=== PATIENT | female | born 1945 | race Caucasian/White ===

== ENCOUNTER 2019-03-16 06:48 | Inpatient (IN) | payer OTHER ==
[2019-03-16] MEDS ORDERED: EPINEPHrine 1 MG/10 ML SYR IV ONE (06:49)
[2019-03-16] MEDS ORDERED: SODIUM CHL 0.9% 1000 ML BAG IV ONE (06:49)
[2019-03-16] MEDS ORDERED: ATROPINE SULF 1 MG/10 ML SYR IV ONE (06:49)
--- OUTSIDE RECORDS SUMMARY | 2019-03-16 06:50 | XMS REPORT | Clinical Summary ---
:1945 Author Organization [facility] Address [address] [place] [address] Care Team Providers Name Role Phone Asked, None Given Primary Care Provider Unavailable Allergies Active Allergy Reactions Severity Noted Date Comments Clonidine 11/15/2015 Penicillins 11/15/2015 Medications Medication Sig Dispensed Refills Start Date End Date Status benazepril (LOTENSIN) Take 1 tablet(s) 0 Active 40 MG tablet every day by oral route. carvedilol (COREG) carvedilol 3.125 mg 0 Active 3.125 MG tablet tablet aspirin (ASPIR-81) 81 Aspir-81 0 Active MG enteric coated tablet calcium carbonate Calcio Merrick 500 0 Active oyster shell (OS-KAREN) mg tablet 500 mg calcium (1,250 mg) tablet BIOTIN (APPEAREX biotin 0 Active ORAL) ergocalciferol Vitamin D2 50,000 0 Active (ERGOCALCIFEROL) unit capsule 50,000 unit capsule omega-3 fatty Fish Oil 0 Active acids-vitamin E (FISH OIL) 1,000 mg capsule vitamin [id number] Take 1 tablet(s) 0 Active acid 0.5-1 mg tablet every day by oral route. folic acid 20 mg folic acid 20 mg 0 Active capsule capsule multivitamin multivitamin tablet 0 Active (THERAGRAN) tablet pravastatin Take 1 tablet(s) 0 Active (PRAVACHOL) 40 MG every day by oral tablet route. ranitidine (ZANTAC) Take 1 tablet(s) 0 Active 150 MG tablet twice a day by oral route. turmeric, bulk, 100 % turmeric (bulk) 0 Active powder Active Problems Problem Noted Date Basal cell carcinoma of skin 08/02/2013 Breast lump 08/02/2013 Family history of malignant neoplasm of breast 02/02/2013 Dysuria 07/29/2012 Malignant neoplasm of breast 05/03/2012 Cancer Staging: Clinical: Stage IIA (T2, N0, M0) - Signed by Willie Benavides MD on 02/25/2016 Encounters Date Type Specialty Care Team Description 10/22/2018 Hospital Encounter Radiology Kerry Peguero MD Malignant neoplasm of upper-outer quadrant of right female breast, unspecified estrogen receptor status (HCC); Abnormal mammogram 10/22/2018 Hospital Encounter Radiology Kerry Peguero MD Malignant neoplasm of upper-outer quadrant of right female breast, unspecified estrogen receptor status (HCC); Abnormal mammogram 07/15/2018 Transcribe Orders Access Kerry Peguero MD Malignant neoplasm of upper-outer quadrant of right female breast, unspecified estrogen receptor status (HCC) (Primary Dx); Abnormal mammogram after 03/15/2018 Family History Medical History Relation Name Comments Cancer Other NIECE GASTRIC CANCER Cancer Other "FDR" BREAST CANCER Cancer Other "FDR" BREAST CANCER Cancer Sister PANCREATIC CANCER Relation Name Status Comments Other NIECE Other "FDR" Other "FDR" Alive Sister Social History Tobacco Use Types Packs/Day Years Used Date Former Smoker Alcohol Use Drinks/Week oz/Week Comments No Sex Assigned at Date Recorded Not on file Job Start Date Occupation Industry Not on file Not on file Not on file Travel History Travel Start Travel End No recent travel history available. Last Filed Vital Signs Not on file Plan of Treatment Health Maintenance Due Date Last Done Comments COLONOSCOPY SCREENING 1994 SHINGLES VACCINES (#1) 1994 65+ PNEUMOCOCCAL VACCINE (1 of 2 - 2009 PCV13) INFLUENZA VACCINE 02/10/2019 BREAST CANCER SCREENING 10/22/2020 10/22/2018, 10/22/2018, 10/22/2018, Additional history exists Procedures Procedure Name Priority Date/Time Associated Comments Diagnosis US BREAST COMPLETE Routine 10/22/2018 12:12 Malignant neoplasm Results for this BILATERAL PM CDT of upper-outer procedure are in quadrant of right the results female breast, section. unspecified estrogen receptor status (HCC) Abnormal mammogram MAMMO BREAST Routine 10/22/2018 11:45 Malignant neoplasm Results for this DIAGNOSTIC AM CDT of upper-outer procedure are in TOMOSYNTHESIS quadrant of right the results BILATERAL female breast, section. unspecified estrogen receptor status (HCC) Abnormal mammogram after 03/15/2018 Results US Breast Complete Bilateral (10/22/2018 12:12 PM CDT) Specimen Narrative Performed At PROCEDURE: [facility] BREAST DIAGNOSTIC TOMOSYNTHESIS BILATERAL, US BREAST COMPLETE BILATERAL 10/22/2018 11:25 AM COMPARISON: Mammograms dated 09/2014 through 09/2017. Bilateral breast ultrasound dated 10/08/2017. TECHNIQUE: Digital bilateral diagnostic mammography with tomosynthesis was performed and interpreted using computer-assisted detection. Hand-held high resolution sonographic images of the bilateral breast(s) including all 4 quadrants and the retroareolar regions were obtained with color Doppler imaging as needed. CLINICAL HISTORY: 73-year-old asymptomatic female with history of right breast cancer status post breast conserving therapy in 2010. FINDINGS: MAMMOGRAM: There are scattered fibroglandular densities.There are no new suspicious masses, calcifications or distortions. A stable chronic seroma/hematoma with associated biopsy marker clip is seen in the posterior upper outer right breast 11 o'clock position 6 cm from the nipple corresponding to the site of segmental mastectomy. There is mild global right skin and trabecular thickening consistent with history of radiation therapy. There is no mammographic evidence of recurrence. ULTRASOUND: There are no new suspicious cystic or solid masses in either breast. A persistent 3 cm seroma/hematoma is again seen in the upper outer right breast corresponding to the site of segmental mastectomy, unchanged compared to prior ultrasound performed September 2017. There is no sonographic evidence of recurrence. IMPRESSION: 1. Benign postsurgical/posttreatment changes of the right breast without specific mammographic or sonographic features of new or recurrent malignancy. 2. No specific mammographic features of left breast malignancy. BI-RADS Category 2. Benign. RECOMMENDATION: Comparison with physical exam and annual screening mammography. Findings and recommendations were discussed with the patient at the time of the examination. This facility is accredited by [employer] for Mammography. A negative x-ray report should not delay biopsy if a dominant or clinically suspicious mass is present. Not all cancers are identified by x-ray. [id number] Performing Organization Address City/State/Zipcode Phone Number [facility] [address] [place] [address] Mammo Breast Diagnostic Tomosynthesis Bilateral (10/22/2018 11:45 AM CDT) Specimen Narrative Performed At PROCEDURE: [facility] BREAST DIAGNOSTIC TOMOSYNTHESIS BILATERAL, US BREAST COMPLETE BILATERAL 10/22/2018 11:25 AM COMPARISON: Mammograms dated 09/2014 through 09/2017. Bilateral breast ultrasound dated 10/08/2017. TECHNIQUE: Digital bilateral diagnostic mammography with tomosynthesis was performed and interpreted using computer-assisted detection. Hand-held high resolution sonographic images of the bilateral breast(s) including all 4 quadrants and the retroareolar regions were obtained with color Doppler imaging as needed. CLINICAL HISTORY: 73-year-old asymptomatic female with history of right breast cancer status post breast conserving therapy in 2010. FINDINGS: MAMMOGRAM: There are scattered fibroglandular densities.There are no new suspicious masses, calcifications or distortions. A stable chronic seroma/hematoma with associated biopsy marker clip is seen in the posterior upper outer right breast 11 o'clock position 6 cm from the nipple corresponding to the site of segmental mastectomy. There is mild global right skin and trabecular thickening consistent with history of radiation therapy. There is no mammographic evidence of recurrence. ULTRASOUND: There are no new suspicious cystic or solid masses in either breast. A persistent 3 cm seroma/hematoma is again seen in the upper outer right breast corresponding to the site of segmental mastectomy, unchanged compared to prior ultrasound performed September 2017. There is no sonographic evidence of recurrence. IMPRESSION: 1. Benign postsurgical/posttreatment changes of the right breast without specific mammographic or sonographic features of new or recurrent malignancy. 2. No specific mammographic features of left breast malignancy. BI-RADS Category 2. Benign. RECOMMENDATION: Comparison with physical exam and annual screening mammography. Findings and recommendations were discussed with the patient at the time of the examination. This facility is accredited by [employer] for Mammography. A negative x-ray report should not delay biopsy if a dominant or clinically suspicious mass is present. Not all cancers are identified by x-ray. [id number] Performing Organization Address City/State/Zipcode Phone Number [facility] [address] [place] [address] after 03/15/2018 Insurance Payer Benefit Plan / Subscriber ID Effective Dates Phone Address Type Group KAREEM SERNA xxxxxxxxx 1981-Present MEDICARE MEDICARE PART A xxxxxxxxxxx 2009-Present [place], [place] Medicare AND B
[2019-03-16] MEDS ORDERED: Ringers Lactate 1,000 ML IV ONE (07:16)
[2019-03-16] MEDS ORDERED: GLYCOPYRROLATE 0.2 MG/ML SYR ONE ×2 (07:21→08:40)
[2019-03-16] MEDS ORDERED: Phenylephrine HCl 10 MG/ML 1 ML VIAL ONE ×2 (07:22→08:42)
[2019-03-16] MEDS ORDERED: LIDOCAINE 1% MPF 30 ML VIAL ONE (08:00)
[2019-03-16] MEDS ORDERED: LIDOCAINE VISCOUS 2% SOLN 15 ML UDC ONE (08:00)
[2019-03-16] MEDS ORDERED: PROPOFOL 200 MG/20 ML VIAL IV ONE (08:07)
[2019-03-16] MEDS ORDERED: MIDAZOLAM HCL 2 MG/2 ML INJ ONE (08:07)
[2019-03-16] MEDS ORDERED: LIDOCAINE 1% MPF 5 ML VIAL ONE (08:07)
[2019-03-16] MEDS ORDERED: EPINEPHRINE/PF 1 MG/ML AMP ONE (08:41)
[2019-03-16] MEDS ORDERED: PROPOFOL 1,000 MG/100 ML VIAL IV PRN (08:53)
[2019-03-16] MEDS ORDERED: NA CHLORIDE 0.9% 1,000 ML IV SCH (09:00)
[2019-03-16] MEDS ORDERED: NOREPINEPHRINE 4 MG in D5W 250 ML IV ONE (09:15)
[2019-03-16] MEDS ORDERED: PROMETHAZINE 25 MG/ML VIAL ONE (09:52)
[2019-03-16] MEDS ORDERED: NA CHLORIDE 0.9% 500 ML ONE (09:52)
[2019-03-16 10:32] LABS: Absolute Lymphocytes (CBC) 0.5 K/uL (0.7-4.9); Basophils % 0.4 % (0-1.3); Hematocrit 25.2 % (36.0-45.0); Lymphocytes % 2.5 % (15.3-44.8); MPV 6.1 fL (7.6-11.3); RBC Red Blood Cell Count 3.13 M/uL (3.86-4.86)
--- NOTE | 2019-03-16 10:35 | RAD REPORT ---
EXAM DESCRIPTION: RAD - FLUORO-GUIDE FOR BRONCH UPT1HR - 03/16/2019 9:32 am FINDINGS: There were 3 portable C-arm views submitted from fluoroscopic assisted right upper lobe br onchoscopy. No suspicious or unexpected finding. Fluoro time was 1 minutes 9 seconds.
[2019-03-16] MEDS ORDERED: LORazepam 2 MG/ML VIAL IV PRN (10:44)
--- NOTE | 2019-03-16 10:46 | RAD REPORT ---
EXAM DESCRIPTION: RAD - Chest Single View - 03/16/2019 10:36 am CLINICAL HISTORY: Post bronchoscopy chest film COMPARISON: CT chest March 04, chest March 03, fluoroscopic images from bronchoscopy March 16 TECHNIQUE: AP portable chest image was obtained 1030 hours . FINDINGS: Endotracheal tube is in place with the tip at the T4 level. Trachea is midline. NG tube is in place extending into the antrum or possibly duodenal bulb. There is a very large right-sided pneumothorax with complete atelectasis of the right upper, right mi ddle and right lower lobes. Along the lower left chest and upper abdomen there is air in the subcutan eous fatty tissues. Air along the right side of the heart border is believed to be related to the pne umothorax rather than pneumomediastinum. Left lung field remains fully aerated. No acute left-sided finding. No left-sided pneumothorax or ple ural fluid collection. Heart size is normal. No acute bony abnormality seen. No acute aortic findings suspected. Findings discussed with the referring physician 10:40 a.m. IMPRESSION: Very large right-sided pneumothorax with complete atelectasis of all right-side lobes. Trachea remains in the midline. Trach tube is in place with tip at the T4 level. Subcutaneous emphysema is present along the lower lateral right chest and abdomen.
[2019-03-16 10:53] LABS: Albumin 2.3 g/dL (3.4-5.0); Bilirubin Total 0.3 mg/dL (0.2-1.0); Potassium 3.2 mmol/L (3.5-5.1); Protein, Total 5.4 g/dL (6.4-8.2)
[2019-03-16] MEDS ORDERED: SUCCINYLCHOLINE 20 MG/ML (10 ML) IV ONE (10:53)
[2019-03-16] MEDS ORDERED: LIDOCAINE 1% 20 ML MDV ONE (10:53)
[2019-03-16 11:08] LABS: Phosphorus 3.6 mg/dL (2.5-4.9)
[2019-03-16 11:23] LABS: Magnesium 1.3 mg/dL (1.8-2.4)
--- NOTE | 2019-03-16 11:28 | RAD REPORT ---
EXAM DESCRIPTION: RAD - Chest Single View - 03/16/2019 11:19 am CLINICAL HISTORY: Pneumothorax with chest tube insertion COMPARISON: March 16 TECHNIQUE: AP portable chest image was obtained 1116 hours . FINDINGS: Chest tube is been placed via the fifth or sixth intercostal space. Chest tube loops to th e floor of the chest with the tip extending in medial mid chest. There has been substantial re-expans ion of the right lung field. There remains small areas of pneumothorax at the right base and right ap ex. Anterior pneumothorax component cannot be evaluated on portable imaging. Trachea remains midline. Endotracheal tube is in place. NG tube has not changed. No new left lung field finding. Heart size i s stable. IMPRESSION: Right-sided chest tube has been placed as detailed. Substantial re-expansion of the atelectatic right lobes. Small remnant pneumothorax remains in the ri ght apex and right base. Anterior pneumothorax component cannot be assessed.
[2019-03-16] MEDS: FENTANYL CITR 100 MCG/2 ML IV PRN ×3 (11:29→22:09)
[2019-03-16] MEDS: LORazepam 2 MG/ML VIAL IV PRN ×5 (11:29→23:33)
[2019-03-16] MEDS: FAMOTIDINE 20 MG/2 ML VIAL IV SCH ×2 (11:45→20:27)
--- NOTE | 2019-03-16 11:53 | P.HP ---
Certification for Inpatient With expected LOS: >2 Midnights Patient will require the following post-hospital care: None Practitioner: I am a practitioner with admitting privileges, knowledge of patient current condition, hospital course, and medical plan of care. Services: Services provided to patient in accordance with Admission requirements found in Title 42 Section 412.3 of the Code of Federal Regulations Patient History Date of Service: 03/17/19 Reason for admission: Respiratory failure hemoptysis pneumothorax History of Present Illness: Patient is 74 years of age evaluated by me as an outpatient for the possibility of a ruling out tuberculosis she did have a right upper lobe infiltrate. Patient was subsequently admitted after the 3rd biopsy she developed profuse bleeding had to be resuscitated with ACLS protocol patient was subsequently intubated and transferred here to the ICU was found to have a pneumothorax and later chest tube had to be inserted she is doing better more cooperative little agitated Patient was evaluated my office complaining of coughing feeling tired weight loss lack of appetite Allergies Penicillins Allergy (Mild, Verified 03/16/19 11:39) Rash PCN Allergy (Mild, Uncoded 03/16/19 11:39) Rash Home Medications: Calcium Carbonate [Calcium] 1 tab PO DAILY 03/16/19 Carvedilol [Coreg] 25 mg PO BID 03/16/19 Cholecalciferol (Vitamin D3) [Vitamin D3] 5,000 unit PO DAILY 03/16/19 Losartan Potassium [Cozaar] 50 mg PO DAILY 03/16/19 Magnesium Oxide [Magnesium] 250 mg PO DAILY 03/16/19 Meclizine HCl 25 mg PO TID PRN 03/16/19 Multivitamin [Multiple Vitamins] 1 each PO DAILY 03/16/19 Pravastatin Sodium 40 mg PO BEDTIME 03/16/19 Ranitidine HCl [Zantac 75] 75 mg PO BID 03/16/19 Vit B Complx C/Folic Acid/Zinc [Renaplex Tablet] 1 tab PO DAILY 03/16/19 - Past Medical/Surgical History -: Hypertension -: Hyperlipidemia -: Breast cancer treated with lumpectomy chemo radiation -: Tonsillectomy -: Cholecystectomy -: Appendectomy -: Lumpectomy - Social History Smoking Status: Former smoker Review of Systems is unable to be obtained Physical Examination - Vital Signs Temperature: 97.4 F Blood Pressure: 127/71 Pulse: 82 Respirations: 15 Pulse Ox (%): 100 - Physical Exam General: Moderate distress, Other (Patient on a ventilator) HEENT: Atraumatic Neck: Supple Respiratory: Clear to auscultation bilaterally Cardiovascular: No edema, Normal S1 S2 Gastrointestinal: Normal bowel sounds, Soft and benign Musculoskeletal: No clubbing, No swelling - Studies Laboratory Data (last 24 hrs) 03/16/19 10:07: Sodium Cancelled, Potassium Cancelled, BUN Cancelled, Creatinine Cancelled, Glucose Cancelled, Phosphorus 3.6, Magnesium 1.3 L* 03/16/19 10:07: Sodium 143, Potassium 3.2 L, BUN 6 L, Creatinine 0.73, Glucose 133 H, Total Bilirubin 0.3, AST 35, ALT 21, Alkaline Phosphatase 89 03/16/19 10:07: WBC 18.4 H D, Hgb 8.2 L, Hct 25.2 L, Plt Count 405 03/16/19 09:51: WBC Cancelled, Hgb Cancelled, Hct Cancelled, Plt Count Cancelled Assessment and Plan - Problems (Diagnosis) (1) Respiratory failure Current Visit: Yes Status: Acute Plan: Patient is 74 years of age admitted to the ICU after complications of bronchoscopy which include significant bleeding and pneumothorax he is currently on a ventilator stable patient also has a chest tube in place mildly anemic labs reviewed continue to monitor may need blood transfusion will also monitor her hemoglobin cultures have been all sent out chest x-ray shows re- expansion plan to wean off and extubate tomorrow - Advance Directives Does patient have a Living Will: No Does patient have a Durable POA for Healthcare: No
--- NOTE | 2019-03-16 11:54 | P.OP ---
Date of Service: 03/16/19 (Bronchoscopy with transbronchial biopsy and a BAL) Findings and Operative Technique Patient is 74 years of age admitted for bronchoscopy with the possibility of rule out TB she does have a right upper lobe infiltrate After obtaining informed consent from the patient she was premedicated by anesthesia finding extensive mucopurulent secretions throughout the entire respiratory tract no mass visible multiple biopsies were obtained from the right upper lobe however after the 3rd biopsy patient started bleeding profusely was later found to have a pneumothorax on the right side. Chest tube was inserted she had to be intubated suctioned and transfer to the ICU
--- NOTE | 2019-03-16 11:57 | P.OP ---
Date of Service: 03/16/19 (Right-sided chest tube) Findings and Operative Technique Patient is 74 years of age admitted for bronchoscopy with the possibility of rule out TB she does have a right upper lobe infiltrate Patient developed a pneumothorax after a biopsy Emergency chest tube was inserted using the percutaneous technique guidewire. Tube position was confirmed using a chest x-ray with complete reexpansion
[2019-03-16] MEDS ORDERED: PIPER/TAZO/NS 3.375gm 3.375 GM/100 ML BAG IVPB SCH (12:00)
[2019-03-16 12:13] LABS: Blood Morphology Comment NOT SEEN (NOT SEEN); Platelet Estimate ADEQ; Urine White Blood Cell Casts OK
[2019-03-16 13:17] LABS: Hematocrit 26.3 % (36.0-45.0); MPV 6.1 fL (7.6-11.3); RBC Red Blood Cell Count 3.27 M/uL (3.86-4.86)
[2019-03-16 13:36] LABS: Arterial Blood Carboxyhemoglob 1.2 % (0-1.5); Blood Gas Oxyhemoglobin 98.5 % (94-97)
[2019-03-16] MEDS: NA CHLORIDE 0.9% 1,000 ML IV SCH ×2 (14:00→23:31)
[2019-03-16] MEDS ORDERED: Magnesium Sulfate 2gm IVPB 2 G/50 ML BAG IV ONE (14:01)
[2019-03-16] MEDS: Meropenem 500 MG in NA CHLORIDE 0.9% 100 ML IV SCH (16:52)
[2019-03-16] MEDS ORDERED: Meropenem 500 MG VIAL IV SCH (17:00)
[2019-03-16] MEDS: NA CHLORIDE 0.9% 250 ML IV PRN (21:03)
[2019-03-16] MEDS ORDERED: MAGNESIUM SULFATE 1 gm IVPB 1 GM/100 ML BAG IV ONE (22:32)
[2019-03-16] MEDS ORDERED: POTASSIUM 25 MEQ EFFERV TAB FT ONE (22:32)
[2019-03-17] MEDS: Meropenem 500 MG in NA CHLORIDE 0.9% 100 ML IV SCH ×3 (00:58→17:30)
[2019-03-17] MEDS: FENTANYL CITR 100 MCG/2 ML IV PRN (02:37)
[2019-03-17 05:00] LABS: Absolute Lymphocytes (CBC) 0.5 K/uL (0.7-4.9); Basophils % 0.2 % (0-1.3); Lymphocytes % 2.3 % (15.3-44.8); MPV 6.1 fL (7.6-11.3); RBC Red Blood Cell Count 3.68 M/uL (3.86-4.86)
[2019-03-17] MEDS: LORazepam 2 MG/ML VIAL IV PRN (05:09)
[2019-03-17 05:53] LABS: Phosphorus 3.1 mg/dL (2.5-4.9); Potassium 3.1 mmol/L (3.5-5.1)
[2019-03-17 05:56] LABS: Blood Morphology Comment NOT SEEN (NOT SEEN); Platelet Estimate ADEQ
[2019-03-17] MEDS: KCL 20 MEQ/100 mL IVPB 20 MEQ/100 ML BAG IV SCH ×2 (06:10→08:30)
--- NOTE | 2019-03-17 08:14 | P.PN ---
Subjective Date of Service: 03/17/19 Chief Complaint: Respiratory failure hemoptysis pneumothorax Subjective: Improving (Patient is doing much better she is very alert cooperative responsive hemodynamically stable) Review of Systems is unable to be obtained Physical Examination - Vital Signs Temperature: 97.4 F Blood Pressure: 127/71 Pulse: 82 Respirations: 15 Pulse Ox (%): 100 - Physical Exam General: Alert, Cooperative Respiratory: Clear to auscultation bilaterally, Diminished Cardiovascular: No edema, Normal S1 S2 Gastrointestinal: Normal bowel sounds, Soft and benign - Studies Laboratory Data (last 24 hrs) 03/17/19 04:45: Sodium 143, Potassium 3.1 L, BUN 9, Creatinine 0.77, Glucose 110 H, Phosphorus 3.1, Magnesium 2.0 03/17/19 04:45: WBC 19.9 H D, Hgb 9.7 L, Hct 30.0 L, Plt Count 327 03/16/19 21:48: Magnesium 1.7 L 03/16/19 12:55: WBC 13.6 H D, Hgb 8.6 L, Hct 26.3 L, Plt Count 372 03/16/19 10:07: Sodium Cancelled, Potassium Cancelled, BUN Cancelled, Creatinine Cancelled, Glucose Cancelled, Phosphorus 3.6, Magnesium 1.3 L* 03/16/19 10:07: Sodium 143, Potassium 3.2 L, BUN 6 L, Creatinine 0.73, Glucose 133 H, Total Bilirubin 0.3, AST 35, ALT 21, Alkaline Phosphatase 89 03/16/19 10:07: WBC 18.4 H D, Hgb 8.2 L, Hct 25.2 L, Plt Count 405 03/16/19 09:51: WBC Cancelled, Hgb Cancelled, Hct Cancelled, Plt Count Cancelled Microbiology Data (last 24 hrs): 03/16/19 10:20 Sputum Gram Stain - Final Assessment & Plan - Problems (Diagnosis) (1) Respiratory failure Current Visit: Yes Status: Acute Plan: Patient is doing much better there is no air leak transfused 1 unit of packed red blood cells cultures are pending vital signs stable minimal oxygen will await for final radiology report I think she has a small right apical pneumothorax there is no air leak output the chest tube back on suction repeat chest x-ray in 2 hr wean and extubate patient is on broad-spectrum antibiotics significant amount of purulent material noted in the entire respiratory tract particularly on the right side in the right upper lobe according to Dr. Cunha her INDRA is also high patient is hypokalemic electrolyte replacement protocol Qualifiers: Chronicity: acute
--- NOTE | 2019-03-17 08:23 | RAD REPORT ---
[facility] 7[facility]57 am CLINICAL HISTORY: Pneumothorax COMPARISON: March 16, 2019 FINDINGS: Small to moderate right apical pneumothorax. Right upper lobe opacity unchanged. Right yokasta st tube unchanged in position Endotracheal and nasogastric tubes in good position IMPRESSION: Small to moderate right apical pneumothorax
[2019-03-17] MEDS: NA CHLORIDE 0.9% 1,000 ML IV SCH ×2 (10:00→19:44)
--- NOTE | 2019-03-17 10:09 | RAD REPORT ---
EXAM DESCRIPTION: RAD - Chest Single View - 03/16/2019 9:47 pm CLINICAL HISTORY: Pneumonia follow-up. COMPARISON: Chest 03/16/2019 TECHNIQUE: AP Chest. FINDINGS: There is a worsening opacity in the right upper lobe compatible with progression of pneumo claude. There is atelectasis in the central aspect of the right lung. The left lung is clear. The heart is upper normal in size. Thoracic aorta is tortuous with mild atherosclerosis. No pneumothorax or ple ural fluid. Endotracheal tube is in the midtrachea. Feeding tube extends into the mid abdomen. Right basilar ches t tube tip has migrated inferiorly now projecting over the inferior right cardiac silhouette. There is an old fracture of lateral right rib eight. Old fracture lateral left rib seven. IMPRESSION: 1. Worsening right upper lobe pneumonia. 2. Right chest tube tip has migrated inferiorly and now projects over the inferior right cardiac silh ouette. No pneumothorax. Electronically signed by: Socorro Tuttle DO 03/17/2019 12:35 AM CDT Due to temporary technical issues with the PACS/Fluency reporting system, reports are being signed by the in house radiologist as a courtesy to ensure prompt reporting. The interpreting radiologist is f ully responsible for the content of the report.
--- NOTE | 2019-03-17 11:30 | RAD REPORT ---
EXAM DESCRIPTION: RAD - Chest Single View - 03/17/2019 10:31 am CLINICAL HISTORY: Follow for pneumothorax Chest pain. COMPARISON: Chest Single View dated 03/17/2019; Chest Single View dated 03/16/2019; Chest Single View da janes 03/16/2019; Chest Single View dated 03/16/2019; Thorax W/ Con dated 03/04/2019; FLUORO-GUIDE FOR BRONC H UPT1HR dated 03/16/2019 FINDINGS: Portable technique limits examination quality. Right apical pneumothorax appears slightly diminished in size since earlier study. Right-sided chest tube remains in place. The heart is normal in size. Small left pleural effusion is seen. ET tube is a maria elena the marlene. Enteric tube descends in the stomach.
--- NOTE | 2019-03-17 11:41 | EKG ---
Test Date: 2019-03-16 Test Time: 10:03:33 Non Profit Job Titles: [employer]ICOL[employer] MEASUREMENT RESULTS: Intervals: Rate: 89 AR: 170 QRSD: 80 QT: 606 QTc: 737 [place]: P: 88 AR: 170 QRS: 38 T: 120 INTERPRETIVE STATEMENTS: Sinus rhythm with fusion complexes Nonspecific T wave abnormality Prolonged QT Abnormal ECG Compared to ECG 06/03/1993 07:45:00 Fusion complex(es) now present T-wave abnormality now present Prolonged QT interval now present Electronically Signed On 03-17-19 11:39:37 CDT by Jared Foy
[2019-03-17 14:10] LABS: Arterial Blood Carboxyhemoglob 1.5 % (0-1.5); Blood Gas Oxyhemoglobin 93.6 % (94-97); Blood O2 Saturation 95.6 % (92-98.5)
[2019-03-17] MEDS ORDERED: KCL 20 MEQ/100 mL IVPB 20 MEQ/100 ML BAG IV SCH (20:00)
[2019-03-18] MEDS: FENTANYL CITR 100 MCG/2 ML IV PRN ×2 (00:41→10:20)
[2019-03-18] MEDS: Meropenem 500 MG in NA CHLORIDE 0.9% 100 ML IV SCH ×2 (00:41→09:04)
[2019-03-18 05:36] LABS: Absolute Lymphocytes (CBC) 0.5 K/uL (0.7-4.9); Basophils % 0.1 % (0-1.3); Hematocrit 30.5 % (36.0-45.0); MPV 6.1 fL (7.6-11.3); RBC Red Blood Cell Count 3.73 M/uL (3.86-4.86)
[2019-03-18 05:53] LABS: Magnesium 1.8 mg/dL (1.8-2.4); Phosphorus 1.9 mg/dL (2.5-4.9); Potassium 4.1 mmol/L (3.5-5.1)
[2019-03-18] MEDS ORDERED: MAGNESIUM SULFATE 1 gm IVPB 1 GM/100 ML BAG IV ONE (06:00)
[2019-03-18] MEDS ORDERED: POTASSIUM PHOS IN 0.9 % NACL 15 MMOL/250 ML BAG IV ONE (06:00)
[2019-03-18 06:57] LABS: Blood Morphology Comment NOT SEEN (NOT SEEN); Platelet Estimate ADEQ
[2019-03-18] MEDS ORDERED: VANCOMYCIN 1.5 GM in NA CHLORIDE 0.9% 500 ML IVPB ONE (08:00)
[2019-03-18] MEDS ORDERED: HALOPERIDOL LACT 5 MG/ML INJ IV PRN (08:45)
[2019-03-18] MEDS: NA CHLORIDE 0.9% 1,000 ML IV SCH ×2 (09:02→11:00)
--- NOTE | 2019-03-18 10:07 | P.PN ---
Subjective Date of Service: 03/18/19 Chief Complaint: Altered mental status wheezing Patient was extubated yesterday still is a little tachypneic sputum cultures positive for Staph aureus patient is alert cooperative responsive Review of Systems General: Weakness Respiratory: Shortness of Breath Physical Examination - Vital Signs Temperature: 97.2 F Blood Pressure: 136/82 Pulse: 99 Respirations: 29 Pulse Ox (%): 97 - Physical Exam General: Other (Arousable) Neck: Supple Respiratory: Expiratory wheezes Cardiovascular: No edema, Regular rate/rhythm - Studies Laboratory Data (last 24 hrs) 03/18/19 04:59: Sodium 146 H, Potassium 4.1, BUN 17, Creatinine 1.24, Glucose 116 H, Phosphorus 1.9 L, Magnesium 1.8 03/18/19 04:59: WBC 23.3 H* D, Hgb 10.2 L, Hct 30.5 L, Plt Count 381 03/17/19 15:50: Potassium 3.8 Microbiology Data (last 24 hrs): 03/16/19 10:20 Sputum Gram Stain - Final Assessment & Plan - Problems (Diagnosis) (1) Respiratory failure Current Visit: Yes Status: Acute Plan: Patient has improved was extubated yesterday chest x-ray shows complete expansion of her lungs. There is no air leak no tight delaying will lead Dc chest tube suction sputum cultures positive for Staph change to IV levofloxacin there is no evidence of AFB you fungus on her a biopsy doubt that this is granulomatous infection can Dc isolation reduce IV fluid Qualifiers: Chronicity: acute
[2019-03-18] MEDS: ALBUTEROL 2.5 MG/3 ML NEB SOL IH SCH ×3 (10:40→20:00)
[2019-03-18] MEDS: IPRATROPIUM BROM 0.5MG/2.5ML NEB SCH ×3 (10:40→20:00)
[2019-03-18] MEDS: HEPARIN 5000 UNIT/ML 1 ML VIAL SQ SCH ×2 (11:37→20:11)
[2019-03-18] MEDS: Levofloxacin500mg IV 500 MG/100 ML BAG IV SCH (11:38)
--- NOTE | 2019-03-18 12:39 | RAD REPORT ---
EXAM DESCRIPTION: [facility] Single View03/18/2019 12:27 pm CLINICAL HISTORY: Pneumothorax COMPARISON: March 17, 2019 FINDINGS: Right chest tube has been repositioned with its tip in the mid medial right hemithorax. The right pneumothorax has decreased in size and is small. Endotracheal and nasogastric tubes have removed. No other significant change IMPRESSION: Small right pneumothorax diminished in size
--- NOTE | 2019-03-18 17:32 | RAD REPORT ---
EXAM DESCRIPTION: [facility] Single View03/18/2019 5:23 pm CLINICAL HISTORY: Pneumothorax COMPARISON: March 18, 2019 FINDINGS: Very small right pneumothorax without significant change from the prior examination Right chest tube remains in place No significant change since prior exam
[2019-03-18 21:46] LABS: Urine Appearance TURBID; Urine Bilirubin NEGATIVE (NEG); Urine Blood 3+ (NEG); Urine Color YELLOW; Urine Glucose NEGATIVE (NEG); Urine Protein 3+ (NEG); Urine Urobilinogen 0.2 mg/dL (0.2-1.0); Urine pH 6.5 (5.0-7.0)
[2019-03-18 22:07] LABS: Urine Bacteria >50 /HPF (<20); Urine Culture Reflex Order REFLEXED
[2019-03-19] MEDS: IPRATROPIUM BROM 0.5MG/2.5ML NEB SCH ×2 (02:00→08:43)
[2019-03-19] MEDS: ALBUTEROL 2.5 MG/3 ML NEB SOL IH SCH ×2 (02:00→08:43)
[2019-03-19] MEDS: FENTANYL CITR 100 MCG/2 ML IV PRN ×3 (03:32→20:54)
[2019-03-19 05:57] LABS: Magnesium 2.2 mg/dL (1.8-2.4); Phosphorus 2.4 mg/dL (2.5-4.9); Potassium 4.4 mmol/L (3.5-5.1)
[2019-03-19] MEDS: NA CHLORIDE 0.9% 1,000 ML IV SCH (07:00)
--- NOTE | 2019-03-19 08:17 | RAD REPORT ---
EXAM DESCRIPTION: RAD - Chest Single View - 03/19/2019 6:05 am CLINICAL HISTORY: Chest tube, right-sided pneumothorax COMPARISON: March 18 TECHNIQUE: AP portable chest image was obtained 0526 hours . FINDINGS: Right-sided chest tube remains in place unchanged in position. No new or progressive lung parenchymal process seen. Patient has little if any identifiable pneumothorax on this examination. A trace amount of apical pneumothorax may remain. On portable imaging, anterior pneumothorax can be occ ult. No new or progressive left lung field finding. Heart and vasculature are normal. No new or enlarging pleural fluid collection. No acute bony abnormality seen. No acute aortic findings suspected. IMPRESSION: There is little if any identifiable pneumothorax remaining. Anterior pneumothorax can be occult on portable imaging.
[2019-03-19] MEDS: D5W 1,000 ML IV SCH ×2 (09:41→23:10)
[2019-03-19] MEDS: HEPARIN 5000 UNIT/ML 1 ML VIAL SQ SCH (09:41)
[2019-03-19 11:18] LABS: Absolute Lymphocytes (CBC) 0.7 K/uL (0.7-4.9); Basophils % 0.2 % (0-1.3); Hematocrit 30.8 % (36.0-45.0); MPV 6.5 fL (7.6-11.3); RBC Red Blood Cell Count 3.71 M/uL (3.86-4.86)
[2019-03-19] MEDS ORDERED: ALBUTEROL 2.5 MG/3 ML NEB SOL IH PRN (11:35)
--- NOTE | 2019-03-19 11:36 | P.PN ---
Subjective Date of Service: 03/19/19 Chief Complaint: Altered mental status Patient is doing much better she is more alert responsive cooperative responding appropriately Review of Systems is unable to be obtained General: Weakness Physical Examination - Vital Signs Temperature: 97.9 F Blood Pressure: 133/74 Pulse: 96 Respirations: 25 Pulse Ox (%): 98 - Physical Exam General: Alert, In no apparent distress, Cooperative Respiratory: Clear to auscultation bilaterally Cardiovascular: No edema, Regular rate/rhythm Gastrointestinal: Normal bowel sounds - Studies Laboratory Data (last 24 hrs) 03/19/19 10:29: WBC 21.7 H*, Hgb 9.8 L, Hct 30.8 L, Plt Count 343 03/19/19 05:04: Sodium 148 H, Potassium 4.4, BUN 30 H, Creatinine 2.07 H, Glucose 94, Phosphorus 2.4 L, Magnesium 2.2 Microbiology Data (last 24 hrs): 03/16/19 10:20 Sputum Gram Stain - Final 03/16/19 10:20 Sputum Culture & Sensitivity - Final Staph Aureus Assessment & Plan - Problems (Diagnosis) (1) Pneumothorax Current Visit: Yes Status: Acute Plan: Patient's lung is fully expanded there is no air leak chest tube off suction will clamp it today repeat chest x-ray in 2 hr the chest x-ray remains expanded will remove the chest tube tomorrow morning patient has had no further hemoptysis bedside physical therapy also has a Staph aureus infection Dc isolation (2) Hypernatremia Current Visit: Yes Status: Acute Plan: Patient is hypernatremic acute renal insufficiency start on D5 water
[2019-03-19] MEDS: Levofloxacin500mg IV 500 MG/100 ML BAG IV SCH (11:54)
--- NOTE | 2019-03-19 15:30 | RAD REPORT ---
EXAM DESCRIPTION: RAD - Chest Single View - 03/19/2019 2:54 pm CLINICAL HISTORY: Pneumothorax, chest tube, chest tube clamped COMPARISON: March 19 TECHNIQUE: AP portable chest image was obtained 1451 hours . FINDINGS: Lung volumes are low probably due to in expiration technique. Chest tube remains in place. No measurable pneumothorax seen on this study. Overlapping ribs in the right apex could potentially mask an extremely small apical pneumothorax. Anterior pneumothorax can be occult on plain film. Right apex opacification has not changed. Heart and vasculature are normal. No new or enlarging pleural fluid collection. No acute bony abnorma lity seen. No acute aortic findings suspected. IMPRESSION: No measurable pneumothorax. Overlapping ribs at the right apex could potentially mask an extremely small apical pneumothorax. Anterior pneumothorax can be occult on portable imaging.
[2019-03-19] MEDS ORDERED: VANCOMYCIN 1.25 GM in NA CHLORIDE 0.9% 250 ML IVPB SCH (19:00)
[2019-03-20 05:32] LABS: Absolute Lymphocytes (CBC) 0.9 K/uL (0.7-4.9); Basophils % 0.3 % (0-1.3); Hematocrit 29.3 % (36.0-45.0); Lymphocytes % 5.6 % (15.3-44.8); MPV 6.4 fL (7.6-11.3); RBC Red Blood Cell Count 3.63 M/uL (3.86-4.86)
[2019-03-20 06:12] LABS: Phosphorus 1.6 mg/dL (2.5-4.9); Potassium 3.6 mmol/L (3.5-5.1)
[2019-03-20 06:17] LABS: Magnesium 1.3 mg/dL (1.8-2.4)
[2019-03-20] MEDS ORDERED: Magnesium Sulfate 2gm IVPB 2 G/50 ML BAG IV ONE (06:35)
[2019-03-20] MEDS ORDERED: POTASSIUM PHOS IN 0.9 % NACL 15 MMOL/250 ML BAG IV ONE (07:00)
--- NOTE | 2019-03-20 10:31 | RAD REPORT ---
EXAM DESCRIPTION: RAD - Chest Single View - 03/20/2019 5:25 am CLINICAL HISTORY: Patient has a chest tube Chest pain. COMPARISON: Chest Single View dated 03/19/2019; Chest Single View dated 03/19/2019; Chest Single View da janes 03/18/2019; Chest Single View dated 03/18/2019 FINDINGS: Portable technique limits examination quality. A right-sided chest tube is in place. No measurable pneumothorax. Mild pulmonary edema is noted with small pleural effusions, slightly greater on the left. The heart is upper limit of normal to mildly e nlarged in size. IMPRESSION: No measurable pneumothorax.
[2019-03-20] MEDS: ENOXAPARIN 30 MG/0.3 ML SQ SCH (10:46)
--- NOTE | 2019-03-20 10:50 | P.PN ---
Subjective Date of Service: 03/20/19 Chief Complaint: Pneumothorax Patient is doing much better she is more alert responsive cooperative responding appropriately. Chest x-ray does not show any pneumothorax this chest tube was clamped yesterday morning she is much better chest tube removed today renal function is now normal hypernatremia resolved plan to transfer to the floor physical therapy possible discharge in 1 or 2 days Review of Systems Unremarkable Physical Examination - Vital Signs Temperature: 98.1 F Blood Pressure: 114/80 Pulse: 101 Respirations: 24 Pulse Ox (%): 96 - Physical Exam General: Alert, In no apparent distress, Oriented x3 Respiratory: Clear to auscultation bilaterally, Diminished Cardiovascular: No edema - Studies Laboratory Data (last 24 hrs) 03/20/19 05:03: WBC 15.5 H D, Hgb 9.9 L, Hct 29.3 L, Plt Count 355 03/20/19 05:03: Sodium 142, Potassium 3.6, BUN 20 H, Creatinine 0.71 D, Glucose 118 H, Phosphorus 1.6 L, Magnesium 1.3 L* D 03/19/19 10:29: WBC 21.7 H*, Hgb 9.8 L, Hct 30.8 L, Plt Count 343 Assessment & Plan - Problems (Diagnosis) (1) Pneumothorax Current Visit: Yes Status: Acute Plan: Doing much better chest tube removed there was no pneumothorax despite chest tube being clamped for 24 hr discuss with radiology on-call and verified there is no yearly labs are back to normal an easy and replaced white count declining for appetite transfer to the floor physical therapy discharge in 1 or 2 days hemoglobin stable at 9.9 (2) Hypernatremia Current Visit: Yes Status: Acute Plan: Patient is hypernatremic acute renal insufficiency start on D5 water
[2019-03-20] MEDS: Levofloxacin500mg IV 500 MG/100 ML BAG IV SCH (13:08)
[2019-03-20] MEDS ORDERED: MAGNESIUM SULFATE 1 gm IVPB 1 GM/100 ML BAG IV ONE (19:33)
[2019-03-21 07:05] LABS: BUN Blood Urea Nitrogen 14 mg/dL (7-18); Bicarbonate 25 mmol/L (21-32); Glucose Level 104 mg/dL (74-106); Phosphorus 2.6 mg/dL (2.5-4.9); Potassium 3.6 mmol/L (3.5-5.1); Sodium Level 141 mmol/L (136-145)
[2019-03-21 07:46] LABS: Magnesium 1.4 mg/dL (1.8-2.4)
--- NOTE | 2019-03-21 08:27 | RAD REPORT ---
EXAM DESCRIPTION: RAD - Chest Single View - 03/21/2019 6:18 am CLINICAL HISTORY: Patient has a chest tube Chest pain. COMPARISON: Chest Single View dated 03/20/2019; Chest Single View dated 03/19/2019; Chest Single View da janes 03/19/2019; Chest Single View dated 03/18/2019 FINDINGS: Portable technique limits examination quality. The right-sided chest tube has been removed since preceding day's study. Small right pleural effusion is seen. No measurable pneumothorax. Left lung is grossly clear with a small left pleural effusion. The heart is enlarged with a tortuous thoracic aorta. IMPRESSION: No measurable right-sided pneumothorax.
[2019-03-21] MEDS: ENOXAPARIN 30 MG/0.3 ML SQ SCH (08:50)
[2019-03-21] MEDS ORDERED: Magnesium Sulfate 2gm IVPB 2 G/50 ML BAG IV ONE (09:00)
[2019-03-21] MEDS ORDERED: POTASSIUM CL SA 10 MEQ TAB PO ONE (09:00)
[2019-03-21 10:26] LABS: Absolute Lymphocytes (CBC) 0.9 K/uL (0.7-4.9); Basophils % 0.3 % (0-1.3); Hematocrit 32.1 % (36.0-45.0); Lymphocytes % 6.3 % (15.3-44.8); MPV 6.1 fL (7.6-11.3); RBC Red Blood Cell Count 3.97 M/uL (3.86-4.86)
[2019-03-21] MEDS: Levofloxacin500mg IV 500 MG/100 ML BAG IV SCH (10:35)
--- NOTE | 2019-03-21 12:14 | P.PN ---
Subjective Date of Service: 03/21/19 Chief Complaint: AFB SMEAR POSITIVE Patient is doing well no new complaints sputum is AFB smear positive pathology was negative for granulomas Review of Systems General: Weakness Respiratory: Shortness of Breath Physical Examination - Vital Signs Temperature: 97.4 F Blood Pressure: 116/77 Pulse: 98 Respirations: 20 Pulse Ox (%): 93 - Physical Exam General: Alert, Oriented x3 Neck: Supple Respiratory: Clear to auscultation bilaterally Cardiovascular: No edema, Regular rate/rhythm - Studies Laboratory Data (last 24 hrs) 03/21/19 10:17: WBC 14.2 H, Hgb 11.0 L, Hct 32.1 L, Plt Count 368 03/21/19 05:40: Sodium 141, Potassium 3.6, BUN 14, Creatinine 0.47 L, Glucose 104, Phosphorus 2.6 D, Magnesium 1.4 L* 03/20/19 14:28: Magnesium 1.6 L Microbiology Data (last 24 hrs): 03/18/19 20:50 Catheterized Urine [place] Count - Final <10,000 CFU/ML. 03/18/19 20:50 Catheterized Urine - Final No growth. 03/21/19 06:30 Vaginal Wet Prep - Final Assessment & Plan - Problems (Diagnosis) (1) Acid fast bacillus Current Visit: Yes Status: Acute Plan: Patient smear is AFB positive microbiology just call me although pathology did not show any evidence of granulomas or AFB were will transfer her to an isolation unit start on triple therapy patient is already on levofloxacin patient is doing well vital signs are all stable oxygenation satisfactory remove Mccann catheter ambulate patient is still hypomagnesemia white count is declining
[2019-03-21] MEDS: ISONIAZID 300 MG TAB PO SCH (14:38)
[2019-03-21] MEDS ORDERED: MAGNESIUM SULFATE 1 gm IVPB 1 GM/100 ML BAG IV ONE (18:00)
[2019-03-21] MEDS: PYRAZINAMIDE 500 MG TAB PO SCH (21:20)
[2019-03-22 05:32] LABS: Magnesium 1.7 mg/dL (1.8-2.4)
[2019-03-22] MEDS ORDERED: MAGNESIUM SULFATE 1 gm IVPB 1 GM/100 ML BAG IV ONE (07:30)
[2019-03-22] MEDS: PYRAZINAMIDE 500 MG TAB PO SCH ×2 (09:33→20:49)
[2019-03-22] MEDS: ISONIAZID 300 MG TAB PO SCH (09:33)
[2019-03-22] MEDS: ENOXAPARIN 30 MG/0.3 ML SQ SCH (09:33)
[2019-03-22] MEDS: ONDANSETRON 4 MG/2 ML VIAL IV PRN ×2 (09:57→21:44)
--- NOTE | 2019-03-22 12:36 | P.PN ---
Subjective Date of Service: 03/22/19 Chief Complaint: AFB SMEAR POSITIVE Patient has some nausea and vomiting today Review of Systems General: Weakness Respiratory: Shortness of Breath Physical Examination - Vital Signs Temperature: 97 F Blood Pressure: 116/75 Pulse: 95 Respirations: 18 Pulse Ox (%): 95 - Physical Exam General: Alert, Oriented x3 Respiratory: Clear to auscultation bilaterally Cardiovascular: No edema, Regular rate/rhythm - Studies Laboratory Data (last 24 hrs) 03/22/19 05:03: Potassium 4.0, Magnesium 1.7 L 03/21/19 16:07: Magnesium 1.7 L Microbiology Data (last 24 hrs): 03/18/19 20:50 Catheterized Urine [place] Count - Final <10,000 CFU/ML. 03/18/19 20:50 Catheterized Urine - Final No growth. Assessment & Plan - Problems (Diagnosis) (1) Acid fast bacillus Current Visit: Yes Status: Acute Plan: Continue with triple therapy she is nausea vomiting will Dc Levaquin sats are 91 % on room air plan for discharge once patient is ambulating chest x-ray satisfactory continue with triple therapy until cultures are available Discharge Plan: Home Plan to discharge in: 24 Hours
[2019-03-23] MEDS ORDERED: DIGOXIN 0.25 MG/ML AMP ONE ×2 (03:37→04:15)
[2019-03-23] MEDS ORDERED: Magnesium Sulfate 2gm IVPB 2 G/50 ML BAG IV ONE (03:39)
[2019-03-23] MEDS ORDERED: NA CHLORIDE 0.9% 500 ML IV ONE (03:42)
[2019-03-23] MEDS ORDERED: NA CHLORIDE 0.9% 250 ML ONE ×2 (03:47→04:36)
[2019-03-23 06:41] LABS: Absolute Lymphocytes (CBC) 0.9 K/uL (0.7-4.9); Basophils % 0.4 % (0-1.3); Hematocrit 34.7 % (36.0-45.0); Lymphocytes % 5.1 % (15.3-44.8); MPV 6.9 fL (7.6-11.3); RBC Red Blood Cell Count 4.27 M/uL (3.86-4.86)
[2019-03-23 07:56] LABS: Magnesium 2.5 mg/dL (1.8-2.4); Thyroid Stimulating Hormone 2.04 uIU/mL (0.360-3.740)
--- NOTE | 2019-03-23 08:33 | P.PN ---
Subjective Date of Service: 03/23/19 Chief Complaint: AFB SMEAR POSITIVE recent AFib Patient is moaning is doing well she is alert responsive cooperative vital signs have been all stable apparently last night she got up vent to the commode developed a rapid AFib at rate around 100 any T fell little dizzy was cardioverted using digoxin and now back in sinus rhythm is mildly short of breath Review of Systems General: Weakness Respiratory: Shortness of Breath Physical Examination - Vital Signs Temperature: 97.2 F Blood Pressure: 106/62 Pulse: 108 Respirations: 18 Pulse Ox (%): 95 - Physical Exam General: Alert, Oriented x3 Respiratory: Clear to auscultation bilaterally Cardiovascular: No edema, Regular rate/rhythm - Studies Laboratory Data (last 24 hrs) 03/23/19 06:35: Sodium 137, Potassium 4.0, BUN 21 H, Creatinine 0.66, Glucose 78 , Magnesium 2.5 H D 03/23/19 05:59: WBC 17.4 H D, Hgb 11.6 L, Hct 34.7 L, Plt Count 346 Assessment & Plan - Problems (Diagnosis) (1) Acid fast bacillus Current Visit: Yes Status: Acute Plan: C no change in treatment she is not tolerating it there has been no nausea vomiting (2) Atrial fibrillation Current Visit: Yes Status: Acute Plan: Patient had an episode of paroxysmal AFib echocardiogram pending she reverted to sinus rhythm the digoxin will plan to ambulate magnesium is now corrected white count is still mildly elevated Qualifiers: Atrial fibrillation type: paroxysmal Qualified Code(s): I48.0 - Paroxysmal atrial fibrillation
--- NOTE | 2019-03-23 09:16 | RAD REPORT ---
EXAM DESCRIPTION: [place] Single View03/23/2019 9:09 am CLINICAL HISTORY: AFib COMPARISON: March 21 FINDINGS: A curvilinear density is present within the right apex equivocal for a tiny pneumothorax. Small pleural effusions with mild bibasilar atelectasis. IMPRESSION: A curvilinear density is present within the right apex equivocal for a tiny pneumothorax
[2019-03-23] MEDS: ENOXAPARIN 40 MG/0.4 ML SQ SCH (09:52)
[2019-03-23] MEDS: ISONIAZID 300 MG TAB PO SCH (09:52)
[2019-03-23] MEDS: PYRAZINAMIDE 500 MG TAB PO SCH ×2 (09:53→21:54)
[2019-03-23] MEDS: ONDANSETRON 4 MG/2 ML VIAL IV PRN (09:53)
--- NOTE | 2019-03-23 10:24 | P.PN ---
Subjective Date of Service: 03/23/19 PATIENT HAD A RAPID RESPONSE CALLED TO THE ROOM. PATIENT WAS IN ATRIAL FIB RAPID VENTRICULAR RESPONSE. PATIENT'S BLOOD PRESSURE WAS 85/50. PATIENT WAS GIVEN IV DIGOXIN. HOWEVER, PATIENT HAS PERIPHERAL IV LOOKED TO BE INFILTRATED. WE WENT AHEAD AND GOT AN EJ. PATIENT WAS GIVEN DIGOXIN ALONG WITH IV FLUID BOLUS AND MAGNESIUM WAS GIVEN WELL. PATIENT CONVERTED TO A SINUS RHYTHM BY ROUND 5:00 A.M.. CLINICALLY, PATIENT APPEARS TO BE DOING MUCH BETTER. WILL NOTIFY DR. VERA IN A.M.. ALSO WILL GET CARDIOLOGY CONSULTATION. Review of Systems 10-point ROS is otherwise unremarkable Physical Examination - Vital Signs Temperature: 97.2 F Blood Pressure: 106/62 Pulse: 108 Respirations: 18 Pulse Ox (%): 95 - Physical Exam General: Alert, In no apparent distress, Oriented x3 Respiratory: Clear to auscultation bilaterally, Normal air movement Cardiovascular: Irregular heart rate/rhythm Gastrointestinal: Normal bowel sounds, Soft and benign, Non-distended Musculoskeletal: No clubbing - Studies Laboratory Data (last 24 hrs) 03/23/19 06:35: Sodium 137, Potassium 4.0, BUN 21 H, Creatinine 0.66, Glucose 78 , Magnesium 2.5 H D 03/23/19 05:59: WBC 17.4 H D, Hgb 11.6 L, Hct 34.7 L, Plt Count 346 Assessment & Plan - Problems (Diagnosis) (1) Atrial fibrillation with rapid ventricular response Current Visit: Yes Status: Acute - Plan 1. WILL CONTINUE MEDICATIONS FOR RATE CONTROL AND CONSIDER ANTICOAGULATION 2. CONTINUE WITH STRICT BLOOD PRESSURE CONTROL 3. ECHOCARDIOGRAM 4. CARDIOLOGY CONSULTATION 5. REPEAT CHEST X-RAY 6. GI AND DVT PROPHYLAXIS Discharge Plan: Home Plan to discharge in: Greater than 2 days - Advance Directives Does patient have a Living Will: No Does patient have a Durable POA for Healthcare: No - Code Status/Comfort Care Code Status Assessed: Yes Code Status: Full Code Critical Care: No Time Spent Managing PTS Care (In Minutes): 45
--- NOTE | 2019-03-23 15:56 | EKG ---
Test Date: 2019-03-23 Test Time: 04:56:54 Embroiderer Hand: RT MEASUREMENT RESULTS: Intervals: Rate: 114 [place]: 158 QRSD: 76 QT: 342 QTc: 471 [place]: P: 48 [place]: 158 QRS: -40 T: 131 INTERPRETIVE STATEMENTS: Sinus tachycardia Left axis deviation ST & T wave abnormality, consider anterior ischemia Abnormal ECG Compared to ECG 03/23/2019 03:13:52 ST (T wave) deviation now present Atrial fibrillation no longer present T-wave abnormality no longer present Possible ischemia still present Electronically Signed On 03-23-19 15:54:24 CDT by Jared Foy
--- NOTE | 2019-03-23 15:57 | EKG ---
Test Date: 2019-03-23 Test Time: 03:13:52 [employer]: RT MEASUREMENT RESULTS: Intervals: Rate: 176 [place]: QRSD: 74 QT: 278 QTc: 475 [place]: P: [place]: QRS: -30 T: 189 INTERPRETIVE STATEMENTS: Atrial fibrillation with rapid ventricular response Left axis deviation T wave abnormality, consider lateral ischemia or digitalis effect Abnormal ECG Compared to ECG 03/16/2019 10:03:33 Left-axis deviation now present Possible ischemia now present Sinus rhythm no longer present Fusion complex(es) no longer present Prolonged QT interval no longer present T-wave abnormality still present Electronically Signed On 03-23-19 15:54:25 CDT by Jared Foy
[2019-03-23] MEDS ORDERED: MAGNES/ALUMIN/SIMET 30ML UCUP PO ONE (21:25)
[2019-03-23] MEDS ORDERED: FAMOTIDINE 20 MG/2 ML VIAL IV ONE (21:30)
--- NOTE | 2019-03-23 22:19 | CON ---
Date of Consultation: 03/23/2019 Patient admitted initially to the ICU by Dr. Yung on 03/17/2019. I saw the patient today, 2018. Reason For Consultation: Atrial fibrillation. History Of Present Illness: Ms. Wagner is a 74-year-old woman. She has a history of hypertension, dyslipidemia; breast cancer, status post lumpectomy, chemo as well as radiation. She also has a hist ory of tonsillectomy, cholecystectomy, appendectomy. She is a former smoker. She had a workup for t uberculosis including a bronchoscopy and had some bleeding and a pneumothorax. She was resuscitated, intubated, and has actually done very well. She had a chest tube placed. She is now on the floor, but while she was here, she had one episode of rapid atrial fibrillation. By the time I saw her, she was back in sinus rhythm. Past Medical History: As stated above. Allergies: SHE IS ALLERGIC TO PENICILLIN. Review of Systems: Negative. Social History: Positive for history of tobacco. Family History: Noncontributory. Medications: Her present medication right now includes Lovenox, inhalers, isoniazid, pyrazinamide, r ifampin, Zofran as needed. She did receive one dose of digoxin when she went into atrial fibrillatio n at 0.5 mg, but that has been stopped. Physical Examination: General: Today, she was pleasant, in no acute distress. She was in sinus rhythm. Vital Signs: She was afebrile. Her blood pressure was 100/58. Her pulse was 88, respiratory rate w as 18. Her temperature was 97.1. HEENT: Negative. Neck: Supple with no bruit. Chest: Reveals some expiratory wheezing. Cardiac: Revealed a regular rhythm and rate. No murmurs, gallops, or rubs. Abdomen: Benign. Extremities: Revealed no clubbing, cyanosis, or edema. Diagnostic Data: At present, she had an EKG today, showing sinus rhythm. She had an echocardiogram today that was normal. Her last chest x-ray showed what may be a tiny pneumothorax. Her laboratory evaluation showed a white count of 17,400. Her hemoglobin was 11.6. Magnesium was 2.5. Her potassi um was 4.0. Her TSH level is normal at 2.040. Her free T4 level is 1.33. Impression And Plan: Paroxysmal atrial fibrillation, probably secondary to her pulmonary issues, her pneumothorax, her tuberculosis. I am sure she had hypoxia at one point. Nevertheless, she has a no rmal echo. She is in sinus rhythm right now. I certainly would be hesitant to put her on beta-block ers with her pulmonary status. I would prefer we just sit tight. If her atrial fibrillation reoccur s, we will readdress the issue. We can always give IV digoxin and/or IV metoprolol as needed. I cer tainly do not want her to be on any anticoagulants just because of that one episode of atrial fibrill ation. Her other issues including hypertension, dyslipidemia are stable. She is on appropriate pulm onary therapy for her possible tuberculosis. I will be available for questions if the need arises. I will discuss the case further with Dr. Yung. CARLA/RUSS Voice ID: [id number] Report ID: [id number]
[2019-03-24 08:13] LABS: C.trachomatis RNA,TMA Not Detected (Not Detected)
--- NOTE | 2019-03-24 08:20 | RAD REPORT ---
EXAM DESCRIPTION: RAD - Chest Single View - 03/24/2019 6:59 am CLINICAL HISTORY: Recent AFib Chest pain. COMPARISON: Chest Single View dated 03/23/2019; Chest Single View dated 03/21/2019; Chest Single View d ated 03/20/2019; Chest Single View dated 03/19/2019 FINDINGS: Portable technique limits examination quality. Small bilateral pleural effusions are noted. No measurable pneumothorax is seen. The heart is normal in size. No displaced fractures.
[2019-03-24] MEDS: ENOXAPARIN 40 MG/0.4 ML SQ SCH (09:15)
[2019-03-24] MEDS: ISONIAZID 300 MG TAB PO SCH (09:15)
[2019-03-24] MEDS: ONDANSETRON 4 MG/2 ML VIAL IV PRN (09:15)
[2019-03-24] MEDS: PYRAZINAMIDE 500 MG TAB PO SCH ×2 (09:15→20:43)
--- NOTE | 2019-03-24 11:43 | ECHO ---
HEIGHT: 5 ft 2 in WEIGHT: 168 lb 9.6 oz DATE OF STUDY: 03/24/[address]: Jose Turpin MD 2-DIMENSIONAL: YES M.MODE: YES DOPPLER: YES COLOR FLOW: YES TDS: NO PORTABLE: NO DEFINITY: NO BUBBLE STUDY: NO DIAGNOSIS: ATRIAL FIBRILLATION WITH RAPID VENTRICULAR RESPONSE CARDIAC HISTORY: CATHERIZATION: NO SURGERY: NO PROSTHETIC VALVE: NO PACEMAKER: NO MEASUREMENTS (cm) DIASTOLIC (NORMALS) SYSTOLIC (NORMALS) IVSd 1.0 (0.6-1.2) LA Diam (1.9-4.0) LVEF 58% LVIDd 4.0 (3.5-5.7) LVIDs 2.8 (2.0-3.5) %FS 30% LVPWd 1.2 (0.6-1.2) Ao Diam 2.6 (2.0-3.7) 2 DIMENSIONAL ASSESSMENT: RIGHT ATRIUM: NORMAL LEFT ATRIUM: NORMAL RIGHT VENTRICLE: NORMAL LEFT VENTRICLE: NORMAL TRICUSPID VALVE: NORMAL MITRAL VALVE: MITRAL ANNULAR CALCIFICATION PULMONIC VALVE: NORMAL AORTIC VALVE: NORMAL PERICARDIAL EFFUSION: NONE AORTIC ROOT: NORMAL LEFT VENTRICULAR WALL MOTION: NORMAL DOPPLER/COLOR FLOW: NORMAL COMMENTS: NORMAL LEFT VENTRICULAR SIZE AND FUNCTION. NO WALL MOTION ABNORMALITY. NO EFFUSION. MITRAL ANNULAR CALCIFICATION. TECHNOLOGIST: Cookie MARADIAGA
[2019-03-25] MEDS: ENOXAPARIN 40 MG/0.4 ML SQ SCH (09:21)
[2019-03-25] MEDS: PYRAZINAMIDE 500 MG TAB PO SCH ×2 (09:22→20:39)
[2019-03-25] MEDS: ISONIAZID 300 MG TAB PO SCH (09:22)
[2019-03-25] MEDS: ONDANSETRON 4 MG/2 ML VIAL IV PRN (09:23)
--- NOTE | 2019-03-25 09:37 | P.PN ---
Subjective Date of Service: 03/25/19 Chief Complaint: AFB SMEAR POSITIVE recent AFib Patient is doing well on claims to have a poor appetite that there was even before this hospitalization stations diet has been chain AFB smear is pending Review of Systems General: Weakness Physical Examination - Vital Signs Temperature: 97.2 F Blood Pressure: 142/91 Pulse: 86 Respirations: 18 Pulse Ox (%): 96 - Physical Exam General: Alert, In no apparent distress, Oriented x3 Respiratory: Clear to auscultation bilaterally, Diminished Assessment & Plan - Problems (Diagnosis) (1) Acid fast bacillus Current Visit: Yes Status: Acute Plan: Acid-fast bacillus stain is pending wants test negative patient will be discharged to SNF unit will have some Nohemi is chest x-ray has cleared the sputum is no longer red coughing up some brownish sputum chest x-rays also cleared up (2) Atrial fibrillation Current Visit: Yes Status: Resolved Plan: No further episodes of AFib Qualifiers: Atrial fibrillation type: paroxysmal Qualified Code(s): I48.0 - Paroxysmal atrial fibrillation
[2019-03-25 10:34] LABS: Hematocrit 33.6 % (36.0-45.0); MPV 6.5 fL (7.6-11.3); RBC Red Blood Cell Count 4.12 M/uL (3.86-4.86)
[2019-03-25] MEDS: MEGESTROL 40 MG TAB PO SCH ×2 (12:07→20:42)
[2019-03-25] MEDS ORDERED: ALBUTEROL 2.5 MG/3 ML NEB SOL IH PRN (14:00)
[2019-03-26] MEDS ORDERED: RANITIDINE 150 MG TABLET PO SCH (09:00)
[2019-03-26] MEDS ORDERED: FAMOTIDINE 20 MG TAB PO SCH (09:00)
[2019-03-26] MEDS: MEGESTROL 40 MG TAB PO SCH ×2 (09:18→20:33)
[2019-03-26] MEDS: ENOXAPARIN 40 MG/0.4 ML SQ SCH (09:18)
[2019-03-26] MEDS: PYRAZINAMIDE 500 MG TAB PO SCH ×2 (09:18→20:33)
[2019-03-26] MEDS: ISONIAZID 300 MG TAB PO SCH (09:18)
[2019-03-26] MEDS ORDERED: PANTOPRAZOLE 40 MG INJ IVP ONE (10:59)
[2019-03-26] MEDS ORDERED: MAGNES/ALUMIN/SIMET 30ML UCUP PO ONE (11:00)
--- NOTE | 2019-03-26 11:05 | P.PN ---
Subjective Date of Service: 03/26/19 Chief Complaint: Heart burn Patient is doing better complaining of poor appetite severe heartburn already on Pepcid ambulating sputum color is now grade no more hemoptysis Review of Systems Unremarkable Physical Examination - Vital Signs Temperature: 97.9 F Blood Pressure: 171/80 Pulse: 92 Respirations: 17 Pulse Ox (%): 94 - Physical Exam General: Alert, In no apparent distress, Oriented x3 Respiratory: Clear to auscultation bilaterally Cardiovascular: No edema, Normal S1 S2 - Studies Microbiology Data (last 24 hrs): 03/25/19 12:15 Sputum Gram Stain - Final Assessment & Plan - Problems (Diagnosis) (1) Acid fast bacillus Current Visit: Yes Status: Acute Plan: The sputum was not send previously I have ordered 1 and was sent yesterday to the lab once the AFB smear is negative patient to be discharged (2) Gastroesophageal reflux Current Visit: Yes Status: Acute Plan: Patient complaining of severe GERD unresponsive to Pepcid history takes Zantac at home I have given her 1 dose of IV pantoprazole NPO Protonix in addition to Maalox Qualifiers: Esophagitis presence: esophagitis presence not specified Qualified Code(s) : K21.9 - Gastro-esophageal reflux disease without esophagitis (3) Hypertension Current Visit: Yes Status: Acute Plan: Resume home medications oxygenation satisfactory Qualifiers: Hypertension type: essential hypertension Qualified Code(s): I10 - Essential (primary) hypertension
[2019-03-26] MEDS: CARVEDILOL 25 MG TAB PO SCH ×2 (11:25→20:33)
[2019-03-26] MEDS: LOSARTAN POTASSIUM 50 MG TABLET PO SCH (11:26)
[2019-03-27] MEDS: PANTOPRAZOLE 40MG TABLET PO SCH (05:24)
[2019-03-27] MEDS: HOME MED 1 EA UNK (Magnesium Oxide [Magnesium] 250 MG) PO SCH (09:00)
[2019-03-27] MEDS: CARVEDILOL 25 MG TAB PO SCH ×2 (09:48→20:42)
[2019-03-27] MEDS: LOSARTAN POTASSIUM 50 MG TABLET PO SCH (09:48)
[2019-03-27] MEDS: MEGESTROL 40 MG TAB PO SCH ×2 (09:48→20:42)
[2019-03-27] MEDS: ISONIAZID 300 MG TAB PO SCH (09:49)
[2019-03-27] MEDS: PYRAZINAMIDE 500 MG TAB PO SCH ×2 (09:49→20:42)
[2019-03-27] MEDS: ENOXAPARIN 40 MG/0.4 ML SQ SCH (09:49)
[2019-03-28] MEDS: PANTOPRAZOLE 40MG TABLET PO SCH (05:26)
[2019-03-28] MEDS: LOSARTAN POTASSIUM 50 MG TABLET PO SCH (07:43)
[2019-03-28] MEDS: PYRAZINAMIDE 500 MG TAB PO SCH ×2 (07:43→21:21)
[2019-03-28] MEDS: ISONIAZID 300 MG TAB PO SCH (07:43)
[2019-03-28] MEDS: ENOXAPARIN 40 MG/0.4 ML SQ SCH (07:43)
[2019-03-28] MEDS: MEGESTROL 40 MG TAB PO SCH ×2 (07:43→21:21)
[2019-03-28] MEDS: CARVEDILOL 25 MG TAB PO SCH (07:44)
[2019-03-28] MEDS: HOME MED 1 EA UNK (Magnesium Oxide [Magnesium] 250 MG) PO SCH (07:44)
--- NOTE | 2019-03-28 12:44 | P.PN ---
Subjective Date of Service: 03/28/19 Chief Complaint: Heart burn Patient has improved significantly she has been up ambulating no further nausea or AFib heartburn controlled still has poor appetite Review of Systems Unremarkable Physical Examination - Vital Signs Temperature: 97.8 F Blood Pressure: 104/58 Pulse: 77 Respirations: 18 Pulse Ox (%): 95 - Physical Exam General: Alert, In no apparent distress, Oriented x3 Respiratory: Clear to auscultation bilaterally Cardiovascular: No edema, Normal S1 S2 - Studies Microbiology Data (last 24 hrs): 03/25/19 12:15 Sputum Gram Stain - Final 03/25/19 12:15 Sputum Culture & Sensitivity - Final Pseudomonas Aeruginosa Assessment & Plan - Problems (Diagnosis) (1) Acid fast bacillus Current Visit: Yes Status: Acute Plan: Patient is doing much better awaiting final confirmation regarding an AFB sputum smear this negative patient will be discharged (2) Gastroesophageal reflux Current Visit: Yes Status: Acute Plan: Much improved Qualifiers: Esophagitis presence: esophagitis presence not specified Qualified Code(s) : K21.9 - Gastro-esophageal reflux disease without esophagitis (3) Hypertension Current Visit: Yes Status: Acute Plan: Resume home medications oxygenation satisfactory Qualifiers: Hypertension type: essential hypertension Qualified Code(s): I10 - Essential (primary) hypertension
[2019-03-29] MEDS: PANTOPRAZOLE 40MG TABLET PO SCH (05:59)
[2019-03-29] MEDS: NA CHLORIDE 0.9% 250 ML IV PRN (06:17)
[2019-03-29] MEDS: HOME MED 1 EA UNK (Magnesium Oxide [Magnesium] 250 MG) PO SCH (09:00)
[2019-03-29] MEDS ORDERED: CEFEPIME 1 GM/VIAL IV SCH (09:00)
[2019-03-29] MEDS: NA CHLORIDE 0.9% 1,000 ML IV SCH ×3 (09:49→19:00)
[2019-03-29] MEDS: MEGESTROL 40 MG TAB PO SCH ×2 (09:50→21:13)
[2019-03-29] MEDS: ENOXAPARIN 40 MG/0.4 ML SQ SCH (09:50)
[2019-03-29] MEDS: PYRAZINAMIDE 500 MG TAB PO SCH ×2 (09:51→21:13)
[2019-03-29] MEDS: ISONIAZID 300 MG TAB PO SCH (09:52)
--- NOTE | 2019-03-29 11:42 | P.PN ---
Subjective Date of Service: 03/29/19 Chief Complaint: Hypotensive weak Patient complains of weakness otherwise she is very alert responsive not short of breath. No productive cough I stopped all her blood pressure pills no fever or chills Review of Systems General: Weakness Physical Examination - Vital Signs Temperature: 97.1 F Blood Pressure: 77/48 Pulse: 85 Respirations: 17 Pulse Ox (%): 94 - Physical Exam General: Alert, In no apparent distress, Oriented x3 Respiratory: Clear to auscultation bilaterally Cardiovascular: No edema, Regular rate/rhythm, Normal S1 S2 Assessment & Plan - Problems (Diagnosis) (1) Acid fast bacillus Current Visit: Yes Status: Acute Plan: AFB results are pending will contact lab again (2) Gastroesophageal reflux Current Visit: Yes Status: Acute Plan: Much improved Qualifiers: Esophagitis presence: esophagitis presence not specified Qualified Code(s) : K21.9 - Gastro-esophageal reflux disease without esophagitis (3) Hypotension Current Visit: Yes Status: Acute Plan: Patient has developed hypotension will Dc all her home blood pressure pills IV fluids in IV fluid bolus also not growing Pseudomonas in the sputum add cefepime labs ordered Qualifiers: Hypotension type: hypotension due to drug Qualified Code(s): I95.2 - Hypotension due to drugs
[2019-03-29 12:13] LABS: Hematocrit 30.5 % (36.0-45.0); MPV 6.7 fL (7.6-11.3); RBC Red Blood Cell Count 3.82 M/uL (3.86-4.86)
[2019-03-29 12:36] LABS: Potassium 3.7 mmol/L (3.5-5.1)
[2019-03-29] MEDS: CEFEPIME/SWI 1gm 10 ML IV SCH ×2 (13:13→21:13)
[2019-03-29] MEDS: ONDANSETRON 4 MG/2 ML VIAL IV PRN (15:48)
[2019-03-29] MEDS ORDERED: HYDROCORTISONE SUC 100 MG INJ IV ONE (20:22)
[2019-03-29] MEDS ORDERED: MIDODRINE HCL 5 MG TABLET PO ONE (20:29)
[2019-03-29] MEDS ORDERED: NA CHLORIDE 0.9% 500 ML IV ONE (20:37)
[2019-03-29] MEDS ORDERED: NA CHLORIDE 0.9% 500 ML IV SCH (21:00)
[2019-03-30] MEDS ORDERED: NOREPINEPHRINE 4mg/D5W 250mL 0 MG/0 ML BAG IV ONE (01:26)
[2019-03-30] MEDS ORDERED: VANCOMYCIN 1 GM/VIAL ONE ×2 (01:31→03:24)
[2019-03-30] MEDS ORDERED: NA CHLORIDE 0.9% 500 ML ONE (01:31)
[2019-03-30] MEDS ORDERED: HYDROCORTISONE SUC 100 MG INJ ONE (01:31)
[2019-03-30] MEDS: NOREPINEPHRINE 4 MG in D5W 250 ML IV PRN ×2 (01:35→05:18)
[2019-03-30] MEDS ORDERED: HYDROCORTISONE SUC 100 MG INJ IV ONE ×2 (02:05→13:45)
[2019-03-30 02:43] LABS: Absolute Lymphocytes (CBC) 0.7 K/uL (0.7-4.9); Basophils % 0.1 % (0-1.3); Hematocrit 32.3 % (36.0-45.0); RBC Red Blood Cell Count 4.01 M/uL (3.86-4.86)
[2019-03-30] MEDS: NA CHLORIDE 0.9% 1,000 ML IV SCH ×2 (02:47→15:00)
[2019-03-30 02:59] LABS: Albumin 1.8 g/dL (3.4-5.0); Bilirubin Direct 2.5 mg/dL (0-0.2); Bilirubin Total 3.3 mg/dL (0.2-1.0); Potassium 4.2 mmol/L (3.5-5.1); Protein, Total 3.9 g/dL (6.4-8.2)
[2019-03-30] MEDS: VANCOMYCIN 2 GM in NA CHLORIDE 0.9% 500 ML IVPB ONE ×2 (03:27→04:30)
[2019-03-30 03:41] LABS: Platelet Estimate INCR
[2019-03-30 03:42] LABS: Blood Morphology Comment NOT SEEN (NOT SEEN)
[2019-03-30 05:06] LABS: Absolute Lymphocytes (CBC) 0.6 K/uL (0.7-4.9); Basophils % 0.2 % (0-1.3); Hematocrit 32.6 % (36.0-45.0); Lymphocytes % 2.4 % (15.3-44.8); RBC Red Blood Cell Count 4.05 M/uL (3.86-4.86)
[2019-03-30] MEDS ORDERED: NOREPINEPHRINE 4 MG/4 ML VIAL ONE (05:09)
[2019-03-30] MEDS ORDERED: NOREPINEPHRINE 4mg/D5W 250mL 4 MG/250 ML BAG IV ONE (05:10)
[2019-03-30] MEDS: METHYLPREDNISOLONE 40 MG INJ IV SCH ×3 (05:21→18:00)
[2019-03-30] MEDS ORDERED: THIAMINE 200 MG/2 ML INJ IVP ONE (06:00)
[2019-03-30] MEDS ORDERED: MIDODRINE HCL 5 MG TABLET PO ONE (06:00)
[2019-03-30] MEDS: PANTOPRAZOLE 40MG TABLET PO SCH (06:30)
[2019-03-30 07:48] LABS: Urine Appearance TURBID; Urine Blood 2+ (NEG); Urine Color ORANGE; Urine Glucose NEGATIVE (NEG); Urine Protein 2+ (NEG); Urine pH 5.5 (5.0-7.0)
[2019-03-30] MEDS ORDERED: ALBUMIN HUMAN 25% 200 ML IV ONE (08:10)
[2019-03-30 08:12] LABS: Urine Bilirubin NEGATIVE (NEG)
[2019-03-30 08:13] LABS: Urine Microscopic Reflex ORDER UMIC
[2019-03-30 08:14] LABS: Urine Bacteria LOADED /HPF (<20); Urine RBC <5 /HPF (NONE SEEN)
[2019-03-30 08:19] LABS: Urine Culture Reflex Order NOT NEEDED
[2019-03-30] MEDS: NOREPINEPHRINE 8 MG in Dextrose 5%-Water 500 ML IV PRN ×2 (08:21→17:04)
[2019-03-30] MEDS ORDERED: Meropenem 1000 MG/VIAL IV SCH (09:00)
[2019-03-30] MEDS: HOME MED 1 EA UNK (Magnesium Oxide [Magnesium] 250 MG) PO SCH (09:00)
--- NOTE | 2019-03-30 09:47 | RAD REPORT ---
EXAM DESCRIPTION: RAD - Chest Single View - 03/30/2019 3:53 am CLINICAL HISTORY: PICC Placement COMPARISON: 03/16/2019 TECHNIQUE: AP Chest. FINDINGS: Right subclavian PICC line is in the mid aspect of the superior vena cava. No pneumothorax . Endotracheal tube and feeding tube have been removed. Heart is normal in size. Mildly tortuous thor acic aorta. There is improved right upper lobe aeration. Mild residual vascular congestion. Left lower lobe conso lidation/atelectasis and small pleural effusions are now present. Right basilar chest tube has been w ithdrawn. There are old bilateral rib fractures. Unremarkable soft tissues. IMPRESSION: 1. Improved right upper lobe aeration. Interim extubation and feeding tube removal. 2. New left lower lobe consolidation/atelectasis. Minimal bilateral pleural fluid. Electronically signed by: Socorro Tuttle DO 03/30/2019 4:07 AM CDT Due to temporary technical issues with the PACS/Fluency reporting system, reports are being signed by the in house radiologist as a courtesy to ensure prompt reporting. The interpreting radiologist is f ully responsible for the content of the report.
[2019-03-30] MEDS: Meropenem 500 MG in NA CHLORIDE 0.9% 100 ML IV SCH ×2 (10:21→21:22)
[2019-03-30] MEDS: ENOXAPARIN 30 MG/0.3 ML SQ SCH (10:21)
--- NOTE | 2019-03-30 12:18 | P.PN ---
Subjective Date of Service: 03/30/19 Chief Complaint: Shock Patient developed refractory shock last night unresponsive to IV fluid boluses was transferred to the ICU in the early hr of the morning patient complained of weakness otherwise very alert responsive so far she has been bolused currently on Levophed drip also has acute renal failure abnormal liver function tests possible side effect of medication Review of Systems General: Weakness Physical Examination - Vital Signs Temperature: 97.5 F Blood Pressure: 103/31 Pulse: 74 Respirations: 23 Pulse Ox (%): 93 - Physical Exam General: In no apparent distress, Oriented x3 Neck: Supple Respiratory: Clear to auscultation bilaterally Cardiovascular: No edema, Regular rate/rhythm - Studies Laboratory Data (last 24 hrs) 03/30/19 04:44: Sodium 134 L, Potassium 4.0, BUN 36 H, Creatinine 2.30 H, Glucose 75 03/30/19 04:44: WBC 24.9 H*, Hgb 11.0 L, Hct 32.6 L, Plt Count 575 H 03/30/19 02:27: Sodium 135 L, Potassium 4.2, BUN 36 H, Creatinine 2.27 H, Glucose 55 L, Total Bilirubin 3.3 H, AST 106 H, ALT 62, Alkaline Phosphatase 116 03/30/19 02:27: WBC 23.7 H* D, Hgb 10.8 L, Hct 32.3 L, Plt Count 498 H 03/29/19 11:58: Sodium 134 L, Potassium 3.7, BUN 28 H, Creatinine 1.39 H, Glucose 60 L 03/29/19 11:58: WBC 17.7 H D, Hgb 10.8 L, Hct 30.5 L, Plt Count 451 H Microbiology Data (last 24 hrs): 03/30/19 02:27 Blood - Blood Anaerobic Blood Culture - Final 03/30/19 02:09 Blood - Blood Anaerobic Blood Culture - Final Assessment & Plan - Problems (Diagnosis) (1) Acid fast bacillus Current Visit: Yes Status: Acute Plan: Repeat acid-fast stain is negative (2) Gastroesophageal reflux Current Visit: Yes Status: Acute Plan: Much improved Qualifiers: Esophagitis presence: esophagitis presence not specified Qualified Code(s) : K21.9 - Gastro-esophageal reflux disease without esophagitis (3) Shock Current Visit: Yes Status: Acute Plan: Patient has developed rep refractory shock unresponsive to IV fluid boluses she has also been given albumin currently on a Levophed drip steroids also developed acute renal failure abnormal liver function tests possibly secondary to hypotension of antibiotics for possible TB also could be side effect of Megace although her cortisol level was normal otherwise she is very alert responsive cooperative continue with IV fluid boluses supportive care possible urosepsis currently on vancomycin and meropenem white count is elevated pro calcitonin is elevated
[2019-03-30] MEDS ORDERED: NA CHLORIDE 0.9% 500 ML IV ONE (12:28)
[2019-03-30] MEDS ORDERED: WATER FOR INJ,STERILE 10 ML IV ONE (13:45)
[2019-03-30 14:31] LABS: Basophils % 0.3 % (0-1.3); Hematocrit 31.2 % (36.0-45.0); Lymphocytes % 4.1 % (15.3-44.8); RBC Red Blood Cell Count 3.86 M/uL (3.86-4.86)
[2019-03-30 14:38] LABS: Potassium 3.9 mmol/L (3.5-5.1)
[2019-03-30 16:45] LABS: Arterial Blood Carboxyhemoglob 1.2 % (0-1.5); Blood Gas Oxyhemoglobin 91.1 % (94-97); Blood O2 Saturation 93.2 % (92-98.5)
--- NOTE | 2019-03-30 17:21 | RAD REPORT ---
EXAM DESCRIPTION: CT - Chest Abd Pelvis Wo Con - 03/30/2019 4:09 pm CLINICAL HISTORY: Hypotension, shortness of breath, breast cancer, possible TB, prior cholecystectom y and appendectomy COMPARISON: CT chest March 04 TECHNIQUE: During dynamic enhancement using 100 milliliters nonionic IV contrast, axial 5 millimeter thick images of the chest, abdomen and pelvis were obtained. Biphasic technique was utilized through the abdomen. Oral contrast was administered. All CT scans are performed using dose optimization technique as appropriate and may include automated exposure control or mA/KV adjustment according to patient size. FINDINGS: The infectious/inflammatory changes seen in the posterior aspect of the right upper lobe h ave significantly improved. There is a small 11 mm cavitary focus that has developed in the apex. No new lung parenchymal process seen. Moderate severity bilateral pleural effusions have developed. Lowe r lobe atelectasis changes are present. No chest wall mass or abnormal axillary lymphadenopathy seen. Mediastinal and hilar regions show no mass or lymphadenopathy. No significant cardiac finding. A 3 centimeter oval hypoechoic mass is present in the upper outer right breast presumed to be site of recent lumpectomy. This may be a subacute or chronic postoperative seroma. Fatty infiltration is present throughout the liver. No focal liver lesion on noncontrast imaging. Spl een and pancreas show no suspicious findings. Cholecystectomy clips are present. No biliary tree dila tation. No hydronephrosis. No obstructing or nonobstructing calculi. No abnormality of either adrenal gland s een. No abnormality in the tissues adjacent to either adrenal gland. Urinary bladder is fully contrac janes around a Mccann catheter. No gastric dilatation or gastric wall thickening. Small bowel loops are not dilated. Patient has a ve ry pronounced sigmoid diverticulosis pattern. There is stranding in the fatty tissues adjacent to the sigmoid colon and a small amount of fluid in the pelvis. There is air present in the vaginal vault. Small focal air collection is present between the vaginal cuff and the sigmoid colon. No mass or bulk y lymphadenopathy. Fat extends into the left inguinal canal. Advanced disc and bony degenerative changes are present. Dense arterial tree calcifications are prese nt. Patient has fluid retention throughout the subcutaneous fatty tissues of the chest abdomen and pelvis . IMPRESSION: Moderate bilateral pleural effusions have developed since the March 04 CT chest imagi ng. The right upper lobe infectious/inflammatory changes March 04 have improved. There is a remnant or residual 11 millimeter cavitary focus in the right apex. The pleural fluid changes and right upper lobe changes are possible findings of TB. No miliary patter n seen. No abnormality near the adrenal glands. Prominent diverticulosis pattern with fluid in stranding in the fatty tissues along the floor the pel vis. Diverticulitis is possible if the patient has corresponding clinical symptoms. Focal air collection is positioned between the vaginal cuff and the sigmoid colon. Air is present in the vaginal vault. An enterovaginal fistula cannot be excluded and needs correlation with any corresp onding clinical findings. Urinary bladder is fully contracted around a Mccann catheter. Bladder fistula is not suspected. Cystit is is not excluded. Fluid retention throughout the subcutaneous fatty tissues of the chest abdomen and pelvis.
[2019-03-30 18:03] LABS: Anisocytosis SLIGHT; Blood Morphology Comment NOTED (NOT SEEN); Platelet Estimate INCR
[2019-03-30 18:06] LABS: Burr Cells 1+; Poikilocytosis 1+
[2019-03-30 18:06] LABS: CKMB Creatine Kinase MB 6.8 ng/mL (0.3-3.6); Troponin I 0.05 ng/mL (0.0-0.045)
[2019-03-30] MEDS ORDERED: PHENYLEPHRINE HCL IV PRN (18:29)
[2019-03-30] MEDS ORDERED: NA CHLORIDE 0.9% IV PRN (18:29)
[2019-03-30] MEDS ORDERED: WATER FOR INJ,STERILE 10 ML ONE (21:23)
[2019-03-30] MEDS: NA CHLORIDE 0.9% IV PRN (21:25)
[2019-03-30] MEDS: NOREPINEPHRINE IV PRN (21:25)
[2019-03-30] MEDS ORDERED: HYDROCORTISONE SUC 100 MG INJ IV SCH (22:00)
[2019-03-30] MEDS: HYDROCORTISONE SUC 100 MG INJ IV SCH (22:00)
[2019-03-31] MEDS: HYDROCORTISONE SUC 100 MG INJ IV SCH ×3 (03:26→16:10)
[2019-03-31] MEDS: NA CHLORIDE 0.9% IV PRN (03:26)
[2019-03-31] MEDS: NOREPINEPHRINE IV PRN (03:26)
[2019-03-31 05:14] LABS: Absolute Lymphocytes (CBC) 0.9 K/uL (0.7-4.9); Basophils % 0.1 % (0-1.3); Hematocrit 31.7 % (36.0-45.0); Lymphocytes % 3.8 % (15.3-44.8); MPV 6.6 fL (7.6-11.3); RBC Red Blood Cell Count 3.93 M/uL (3.86-4.86)
[2019-03-31] MEDS: PANTOPRAZOLE 40MG TABLET PO SCH (05:43)
[2019-03-31 06:16] LABS: Albumin 2.1 g/dL (3.4-5.0); BUN Blood Urea Nitrogen 43 mg/dL (7-18); Bicarbonate 21 mmol/L (21-32); Ferritin 927.6 ng/mL (8-388); Folic Acid, (Folate) > 20.0 ng/mL (3.1-17.5); Glucose Level 165 mg/dL (74-106); Phosphorus 5.6 mg/dL (2.5-4.9); Potassium 3.9 mmol/L (3.5-5.1); Sodium Level 132 mmol/L (136-145); Transferrin 50 mg/dL (200-360); Uric Acid 8.8 mg/dL (2.6-6.0)
[2019-03-31 06:25] LABS: Magnesium 1.3 mg/dL (1.8-2.4)
[2019-03-31] MEDS ORDERED: Magnesium Sulfate 2gm IVPB 2 G/50 ML BAG IV ONE (07:00)
[2019-03-31] MEDS: ENOXAPARIN 30 MG/0.3 ML SQ SCH (08:14)
[2019-03-31] MEDS: Meropenem 500 MG in NA CHLORIDE 0.9% 100 ML IV SCH ×2 (08:15→22:15)
[2019-03-31] MEDS: HOME MED 1 EA UNK (Magnesium Oxide [Magnesium] 250 MG) PO SCH (08:16)
--- NOTE | 2019-03-31 08:47 | P.PN ---
Subjective Date of Service: 03/31/19 Chief Complaint: Shock Patient developed refractory shock yesterday and was treated with high doses of steroids and vasopressors morning she is doing much better very alert responsive patient is been weaned off Dexter-Synephrine currently on low doses of Levophed mild abdominal discomfort otherwise no other complaints son at the bedside Review of Systems General: Weakness Physical Examination - Vital Signs Temperature: 97.9 F Blood Pressure: 118/40 Pulse: 70 Respirations: 16 Pulse Ox (%): 97 - Physical Exam General: Alert, Oriented x3 HEENT: Atraumatic Neck: Supple Respiratory: Clear to auscultation bilaterally Cardiovascular: No edema, Normal S1 S2 Gastrointestinal: Tenderness (Mild left lower quadrant tenderness) - Studies Laboratory Data (last 24 hrs) 03/31/19 04:43: WBC 24.6 H*, Hgb 10.7 L, Hct 31.7 L, Plt Count 456 H 03/31/19 04:33: Sodium 132 L, Potassium 3.9, BUN 43 H, Creatinine 2.63 H, Glucose 165 H, Uric Acid 8.8 H, Phosphorus 5.6 H, Magnesium 1.3 L* D 03/30/19 16:50: Troponin I 0.05 H 03/30/19 14:01: Sodium 130 L, Potassium 3.9, BUN 38 H, Creatinine 2.63 H, Glucose 169 H 03/30/19 14:01: WBC 24.4 H*, Hgb 10.5 L, Hct 31.2 L, Plt Count 517 H Microbiology Data (last 24 hrs): 03/30/19 02:09 Blood - Blood Anaerobic Blood Culture - Final 03/30/19 02:27 Blood - Blood Anaerobic Blood Culture - Final Assessment & Plan - Problems (Diagnosis) (1) Acid fast bacillus Current Visit: Yes Status: Acute Plan: Repeat acid-fast stain is negative (2) Gastroesophageal reflux Current Visit: Yes Status: Acute Plan: Much improved Qualifiers: Esophagitis presence: esophagitis presence not specified Qualified Code(s) : K21.9 - Gastro-esophageal reflux disease without esophagitis (3) Shock Current Visit: Yes Status: Acute Plan: Patient developed shock possible adrenal insufficiency reduce dose of hydrocortisone to 50 mg IV q 8 will Dc vancomycin I am not sure if she developed an anaphylactic reaction to 1 of alert TB medications or a reaction to Megace white count elevated mildly anemic urine output improving creatinine stable (4) Enterovaginal fistula Current Visit: Yes Status: Acute Plan: Patient has enterovaginal fistula associated with discharge urine culture is now positive awaiting identification console Dr. De Oliveira.
[2019-03-31] MEDS ORDERED: VANCOMYCIN/NS 1 gm 1 GM/250 ML BAG IV SCH (09:00)
[2019-03-31] MEDS: THIAMINE HCL 100 MG TABLET PO SCH (10:48)
[2019-03-31] MEDS: WATER FOR INJ,STERILE 10 ML IV SCH ×2 (10:49→16:11)
[2019-03-31] MEDS: MIDODRINE HCL 5 MG TABLET PO SCH ×2 (10:52→22:16)
[2019-03-31] MEDS: MAGNESIUM OXIDE 400 MG TAB PO SCH (10:54)
[2019-03-31] MEDS ORDERED: CALCIUM CARBONATE 500 MG TAB PO SCH (14:00)
[2019-03-31] MEDS: CALCIUM CARBONATE CHEW 500MG TAB PO SCH ×2 (14:13→22:16)
[2019-03-31] MEDS ORDERED: VANCOMYCIN 1.25 GM in NA CHLORIDE 0.9% 500 ML IVPB SCH (15:00)
[2019-03-31 21:48] LABS: Rheumatoid Factor NEG (NEG)
[2019-04-01] MEDS: NA CHLORIDE 0.9% IV PRN (00:05)
[2019-04-01] MEDS: NOREPINEPHRINE IV PRN (00:05)
[2019-04-01] MEDS: CALCITROL 0.25 MCG CAP PO SCH (00:33)
[2019-04-01] MEDS: HYDROCORTISONE SUC 100 MG INJ IV SCH ×2 (00:41→08:03)
[2019-04-01] MEDS: WATER FOR INJ,STERILE 10 ML IV SCH ×2 (01:00→08:03)
--- NOTE | 2019-04-01 02:25 | PN ---
Date of Progress Note: 03/31/2019 Subjective: Patient was admitted with sepsis. The patient was on pressor. The patient responded ve ry well yesterday. We managed to decrease the pressor. Objective: Vital Signs: Today, blood pressure 111/51, pulse of 75. The patient started to have goo d urine output around 70 mL/hr. Chest: Decreased entry bilateral base. Heart: S1, S2. Systolic murmur. Abdomen: Soft, nontender. Extremities: +2 edema. Laboratory Data: WBC 24.6, H and H 10.7/31.7, platelets 456. Sodium 132, potassium 3.9, bicarb 21, BUN 43, creatinine 2.6, GFR of 18, uric acid 8.8, calcium 6.7, phos 5.6, magnesium 1.3, T-sat of 91, albumin 2.1. Corrected calcium is 8.5. B12 more than 2000. Folate more than 20. Vitamin D still p ending. PTH 256. The PC ratio of 2.1. Current Medications: The patient is on include: 1.Meropenem. 2.Vancomycin. 3.Levophed. 4.Lovenox. 5.Zofran. 6.Hydrocortisone 50 t.i.d. 7.Midodrine. Assessment And Plan: 1.Acute kidney injury secondary to poor perfusion, acute tubular necrosis, currently nonoliguric, ov er volume, without any respiratory distress. I am going to maintain the patient on current IV fluids just with pressor and we will monitor the patient. We will plan to initiate gentle diuresis tomorro w as her blood pressure stay stabilized. 2.Hypertension, currently hypotension. Keep holding all blood pressure medications. 3.Septic shock secondary to urosepsis/cavitary lesion in the lung. Continue current antibiotic. Fo llow up with Pulmonary. We will send for QuantiFERON. 4.Hypocalcemia, secondary hyperparathyroidism. I am going to start the patient on calcium carbonate and start the patient on calcitriol. 5.Hypomagnesemia, we will supplement. 6.Relative adrenal insufficiency. Continue current hydrocortisone. We will resume the patient on m idodrine. 7.Anasarca secondary to renal failure. As I mentioned, we are going to start the patient's diuresis most probably tomorrow if kidney function stay stable and blood pressure stay stable. MIRIAN/ANGIL Voice ID: [id number] Report ID: [id number]
[2019-04-01] MEDS: PANTOPRAZOLE 40MG TABLET PO SCH (06:19)
[2019-04-01 06:57] LABS: Absolute Lymphocytes (CBC) 0.7 K/uL (0.7-4.9); Basophils % 0.1 % (0-1.3); Hematocrit 29.5 % (36.0-45.0); Lymphocytes % 4.1 % (15.3-44.8); MPV 6.4 fL (7.6-11.3); RBC Red Blood Cell Count 3.68 M/uL (3.86-4.86)
[2019-04-01 07:10] LABS: Magnesium 1.7 mg/dL (1.8-2.4); Phosphorus 3.5 mg/dL (2.5-4.9); Potassium 3.5 mmol/L (3.5-5.1)
[2019-04-01] MEDS ORDERED: MAGNESIUM SULFATE 1 gm IVPB 1 GM/100 ML BAG IV ONE (07:25)
[2019-04-01] MEDS: THIAMINE HCL 100 MG TABLET PO SCH (08:02)
[2019-04-01] MEDS: ENOXAPARIN 30 MG/0.3 ML SQ SCH (08:02)
[2019-04-01] MEDS: CALCIUM CARBONATE CHEW 500MG TAB PO SCH ×3 (08:03→20:52)
[2019-04-01] MEDS: MIDODRINE HCL 5 MG TABLET PO SCH ×2 (08:03→20:52)
[2019-04-01] MEDS: Meropenem 500 MG in NA CHLORIDE 0.9% 100 ML IV SCH (08:04)
--- NOTE | 2019-04-01 08:46 | CON ---
Date of Consultation: 03/30/2019 Reason For Consultation: Elevated BUN and creatinine, fluid management. History Of Present Illness: This is a pleasant 74-year-old female with no significant past medical history. Patient was admitted to the hospital on the 17 of March, after bronchoscopy complicated with pneumothorax, intubated, extubated, then was moved to the rehab facility. Patient was doing well. Apparently, in the last couple of days, patient started having low blood pressure and weakness with decreased urine output. For that reason, patient was re-admitted to the ICU. During the hospital course, patient was on beta- brittany and EMMA inhibitor, which was stopped already. Patient upon admission had a completely normal kidney function. Patient was placed on triple treatment for TB giving the positive test of AFB. Patient denied any rashes over the night. Patient at night did not have that much urine, less than 50 mL in the last 12-hour on the shift. Before, patient had around only 250. Patient was maintained on pressor, with hydrocortisone to maintain her blood pressure. Her systolics have been stabilized around 100 to 120, diastolic is still low down to the 30 with MAP less than 60. Patient was started on IV antibiotic including meropenem and vancomycin. TB treatment including the rifampin, pyrazinamide, and isoniazid has been discontinued. Last dose was given back on the . Last EMMA inhibitor was given on the . Allergies: TO PENICILLIN. Social History: Lives with her family. Denies smoking. Denies drinking. Denies drug use. Medical History: Includes: 1. Hypertension. 2. Hyperlipidemia. 3. Breast cancer, status post lumpectomy and chemo with radiation. Past Surgical History: Includes: 1. Lumpectomy. 2. Chest tube placement and removal. Home Medications: Include calcium carbonate, carvedilol, vitamin D, losartan, magnesium , multivitamin, pravastatin, ranitidine, B complex. Current Medications: In the hospital include: 1. Meropenem. 2. Vancomycin. 3. Midodrine. 4. Levophed. 5. Lovenox. 6. Hydrocortisone 100 t.i.d. 7. IV fluid normal saline. Review of Systems: Head and Neck: No red eye. No ear pain. GI: No nausea, no vomiting. Poor intake. Patient used to be on Megace. 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 Respiratory: No shortness of breath. Cardiovascular: No chest pain. Has low blood pressure. Neuro: Generalized weakness. Musculoskeletal: Fatigue. Endocrine: No polydipsia. Skin: No rash. Physical Examination: HEENT again, patient is oliguric. Chest: Clear to auscultation. Heart: S1, S2. Regular rhythm. Systolic murmur. Abdomen: Soft, nontender. Could not appreciate any organomegaly. Extremities: Trace edema. Laboratory Data: WBC 24.4, platelets of 517, H and H 10.5/31.2. Sodium 130, potassium 3.9, bicarb 20, BUN 38, creatinine 2.6, GFR of 18, calcium 7. Cardiac enzyme was negative. Albumin 1.8. Procalcitonin 7.7. Cortisol 27.9. AB.39, CO2 of 28, O2 of 73, base excess -7. Urinalysis: Protein- creatinine 2.1, wbc numerous to count. Chest x-ray, no cardiomegaly. CT of the abdomen, pelvis, and chest, no contrast ; showing cavitation on the right upper lobe, moderate bilateral pleural effusions, right upper lobe infection. Inflammatory change has been improved with 11 mm cavitary foci in the right apex. The pleural fluid change and right upper lobe change are possible findings of ? miliary pattern, prominent diverticulosis with diverticulitis, focal air collection between the vaginal cuff and sigmoid colon, possible internal vaginal fistula. Urinary bladder contracted, Mccann catheter in place. No bladder fistula seen, suspected possible cystitis. Assessment And Plan: 1. Acute kidney injury secondary to poor perfusion, acute tubular necrosis, oliguric with mild acidosis. I had a long discussion with the patient in the presence of her son that in case her kidney function continues to decline, patient may need renal replacement therapy and given that the patient pressor dependent, patient may need to be placed on CVVH, which is not available at our hospital, so patient cannot need to be transferred. 2. lung cavitary lesions. Even though that mostly as by infectious finding, it is necrotizing pneumonia, questionable of tuberculosis, again I am going to go ahead and send for full serology to rule out any pulmonary-renal syndrome. I am going to go ahead and also send for urine eosinophil to rule out any acute interstitial nephritis. We will follow up the patient. Patient had a workup back in February. At that time, her lab showed a positive INDRA. For that reason, I need to rule out any autoimmune disease. We will repeat the INDRA and the double-strand. 3. Hypertension, currently hypotension, on septic shock. Adrenal insufficiency has been ruled out with a random cortisol. We will follow up with Critical Care. We will goal for systolic blood pressure above 110. 4. Urinary tract infection with urosepsis, septic shock, sensitive to meropenem. I agree with the current cover. 5. Necrotizing pneumonia. Positive staph. As by Pulmonary, continue vancomycin for the time being. 6. Lactic acidosis secondary to low blood pressure. I do not see the need for any bicarb for the time being. 7. Tuberculosis. As by Pulmonary, miliary tuberculosis has been ruled out. Thank you, Dr. Yung, for allowing us to participate in the care of your patient. HUNG Voice ID: [id number] Report ID: [id number] [place]
[2019-04-01] MEDS: MAGNESIUM OXIDE 400 MG TAB PO SCH (09:00)
--- NOTE | 2019-04-01 10:38 | EKG ---
Test Date: 2019-03-30 Test Time: 16:39:54 Print Line Tailer: LISA MEASUREMENT RESULTS: Intervals: Rate: 77 NC: 158 QRSD: 86 QT: 472 QTc: 534 [place]: P: 54 NC: 158 QRS: 21 T: 212 INTERPRETIVE STATEMENTS: Normal sinus rhythm Cannot rule out Anterior infarct, age undetermined T wave abnormality, consider inferolateral ischemia Prolonged QT Abnormal ECG Compared to ECG 03/23/2019 04:56:54 Myocardial infarct finding now present T-wave abnormality now present Prolonged QT interval now present Sinus tachycardia no longer present Left-axis deviation no longer present ST (T wave) deviation no longer present Possible ischemia still present Electronically Signed On 04-01-19 10:32:16 CDT by Jared Foy
--- NOTE | 2019-04-01 11:04 | P.PN ---
Subjective Date of Service: 04/01/19 Chief Complaint: Shock Patient is doing much better she is weaned off vasopressors awaiting Dr. Gramajo to evaluate the patient. Patient mentions that she has had some chronic vaginal discharge for the past few months some lower abdominal discomfort EES BAL isolated in the urine Review of Systems General: Weakness Physical Examination - Vital Signs Temperature: 97.8 F Blood Pressure: 114/46 Pulse: 69 Respirations: 14 Pulse Ox (%): 95 - Physical Exam General: Alert, Oriented x3 Neck: Supple Respiratory: Clear to auscultation bilaterally Cardiovascular: No edema, Regular rate/rhythm - Studies Laboratory Data (last 24 hrs) 04/01/19 06:23: Sodium 137, Potassium 3.5, BUN 44 H, Creatinine 1.61 H D, Glucose 103, Phosphorus 3.5, Magnesium 1.7 L 04/01/19 06:23: WBC 17.1 H D, Hgb 10.0 L, Hct 29.5 L, Plt Count 364 D 03/31/19 14:15: Magnesium 1.8 D Microbiology Data (last 24 hrs): 03/30/19 06:30 Catheterized Urine [place] Count - Final >100,000 CFU/ML. 03/30/19 06:30 Catheterized Urine - Final Escherichia Coli Esbl Assessment & Plan - Problems (Diagnosis) (1) Gastroesophageal reflux Current Visit: Yes Status: Acute Plan: Much improved Qualifiers: Esophagitis presence: esophagitis presence not specified Qualified Code(s) : K21.9 - Gastro-esophageal reflux disease without esophagitis (2) Shock Current Visit: Yes Status: Acute Plan: Shock has resolved she is off vasopressors reduce dose of hydrocortisone will exchange architect to p.o. prednisone tomorrow EES BAL isolated in the urine continue with meropenem awaiting ID Consul white count is improving Dc vancomycin patient has a PICC line blood cultures are so far negative probably discharge to [facility] 1 or 2 days (3) Enterovaginal fistula Current Visit: Yes Status: Acute Plan: Patient has enterovaginal fistula associated with discharge awaiting console Dr. De Oliveira.
--- NOTE | 2019-04-01 12:57 | P.PN ---
Subjective Date of Service: 04/01/19 Chief Complaint: Shock Subjective: Improving Subjective Pt admitted with septic shock , found to have LUIS ANGEL and UTI ESBL with possible enterovaginal fistula Today feels better UO improving Cr improving Will give lasix 40mg X1 pending INSURANCE CHECKER evaluation Physical Examination - Vital Signs Temperature: 97.8 F Blood Pressure: 114/46 Pulse: 69 Respirations: 14 Pulse Ox (%): 95 - Physical Exam General: Alert, In no apparent distress HEENT: Atraumatic Neck: Supple, JVD not distended, Without JVD or thyroid abnormality Respiratory: Diminished Cardiovascular: Normal pulses, Regular rate/rhythm, Normal S1 S2, No rubs, Edema , Gallops Gastrointestinal: Soft and benign, Non-distended - Studies Laboratory Data (last 24 hrs) 04/01/19 06:23: Sodium 137, Potassium 3.5, BUN 44 H, Creatinine 1.61 H D, Glucose 103, Phosphorus 3.5, Magnesium 1.7 L 04/01/19 06:23: WBC 17.1 H D, Hgb 10.0 L, Hct 29.5 L, Plt Count 364 D 03/31/19 14:15: Magnesium 1.8 D Microbiology Data (last 24 hrs): 03/30/19 06:30 Catheterized Urine [place] Count - Final >100,000 CFU/ML. 03/30/19 06:30 Catheterized Urine - Final Escherichia Coli Esbl Assessment And Plan - Current Problems (Diagnosis) (1) LUIS ANGEL (acute kidney injury) Current Visit: Yes Status: Acute (2) Atrial fibrillation with rapid ventricular response Current Visit: Yes Status: Acute (3) Atrial fibrillation Current Visit: Yes Status: Resolved Qualifiers: Atrial fibrillation type: paroxysmal Qualified Code(s): I48.0 - Paroxysmal atrial fibrillation (4) Hypertension Current Visit: Yes Status: Resolved Qualifiers: Hypertension type: essential hypertension Qualified Code(s): I10 - Essential (primary) hypertension - Plan Acute kidney injury secondary Likely ischemic ATN Cr improving IVF on Hold will start on lasix monitor vanco level renal dose meds Ct : no hydro , F/U serology W/U B/l pleural effusion will start on lasix Septic shock improving off pressers urine with ESBL , INSURANCE CHECKER evaluation for enterovaginal fistula PNA Cont ABx monitor Vanco leve t
[2019-04-01] MEDS ORDERED: POTASSIUM 25 MEQ EFFERV TAB PO ONE (13:49)
[2019-04-01] MEDS ORDERED: FUROSEMIDE 40 MG/4 ML VIAL IV ONE (14:04)
--- NOTE | 2019-04-01 16:05 | CON ---
History Of Present Illness: This is a 74-year-old female, I was consulted for urinary tract infectio n secondary to ESBL and suspicion of possible TB. Patient denies any chest pain, abdominal pain, con stipation, or diarrhea. She was initially seen by Pulmonary team after the bronch, her lung collapse d, and the patient was transferred to the hospital with chest tube placement. Initial suspicion was right upper lobe infiltrate. Her AFB sputum is pending right now and she is currently getting merope nem for ESBL, and she was on Levophed, which has been taken off. Patient currently is not on any ant i-TB medication. Past Medical History: Breast cancer, breast lumpectomy, hypertension, hyperlipidemia, cholecystectom y, appendectomy, recent bronch with lung collapse treated with chest tube placement. Social History: Tobacco positive. Alcohol negative. Family History: Noncontributory. Medications: Meropenem. See MAR for other medications. Allergies: PENICILLIN. Review of Systems: A 10-point review was performed. Physical Examination: General: This is a 74-year-old female, lying in bed, not in any acute cardiopulmonary distress. Vital Signs: Temperature 97.8, pulse 69, respirations 14, blood pressure 114/46. HEENT: Unremarkable. Neck: Supple. Lungs: Basal crackles. Heart: S1, S2. Regular. Abdomen: Soft, nontender. Bowel sounds present. Extremities: Trace edema. Laboratory Data: Shows WBC 17,000 down from 26,000, hemoglobin 10, platelets are 364. Chemistry cortes ws sodium 137, potassium 3.5, chloride 104, bicarb 23, BUN 44, creatinine 1.61, glucose is 103. Micr o data; E coli ESBL in the urine. Sputum culture growing pseudomonas from 03/25. AFB pending. Ches t x-ray shows patient has improved right upper lobe aeration. New left lobe consolidation, atelectas is noted with minimal bilateral pleural effusions. CT abdomen and chest shows moderate bilateral ple ural effusions. Right upper lobe infectious inflammatory changes have improved. Pleural fluid rosas es in the right upper lobe, possibly finding of TB. No miliary pattern seen. Assessment And Plan: A 74-year-old female with urinary tract infection secondary to ESBL Escherichia coli and pseudomonas from 03/25, with a suspicion of possible tuberculosis, being treated with merop enem. At this time, we will continue current medication pending culture results and AFB results. Mo nitor patient closely. Continue isolation. Thank you Dr. Sheffield for consult. NF/MODL Voice ID: [id number] Report ID: [id number]
[2019-04-01] MEDS: predniSONE 20 MG TAB PO SCH (20:51)
[2019-04-01] MEDS ORDERED: WATER FOR INJ,STERILE 10 ML IV SCH (21:00)
[2019-04-01] MEDS ORDERED: Meropenem 1000 MG/VIAL IV SCH (21:00)
[2019-04-01] MEDS ORDERED: HYDROCORTISONE SUC 100 MG INJ IV SCH (21:00)
--- NOTE | 2019-04-02 00:11 | CON ---
The patient is being seen with a 24-hour consult. Reason For Consultation: Possible enterovaginal fistula. The patient is seen today in ICU bed 8, howie Nava, patient's nurse. History Of Present Illness: The patient is a 74-year-old 3, para 3, postmenopausal, status p ost hysterectomy, bilateral salpingo-oophorectomy about 12 years ago for abnormal bleeding and ovaria n cysts. Patient had this with Dr. Scales in [place]. Never had any gynecological exams in the rec ent past. No history of any abnormal vaginal complaints over the past 12 years. Denies any sexual a ctivity and no complaints of vaginal bulge. Patient describes that there were 2 bulges that she is p oorly describing unsure if this is vaginal prolapse versus hemorrhoids. Today on questioning about her vaginal symptoms, the patient has been complaining of vaginal discharg e. This is fairly recent. Denies any bleeding vaginally since her hysterectomy. The patient had hi story of a colonoscopy within the last 10 years, was aware of sigmoid diverticulosis, but denies an e pisode of diverticulitis ever. She has been brought to the hospital for a bronchoscopy for investigation of cough. Then, she has be en admitted due to subsequent issues that arose after this initial admission. During the hospital st ay here, patient has a history of admission to the ICU x2. She has probably been treated for pneumot horax and later on for hypertension and she has been intubated and on pressors in the hospital. Most recently, she has been on pressors and on the vent, then weaned off as of this morning, is awake and is able to give a very good history today. No prior history of past medical problems. No prior his tory of urinary tract infections. No urinary dysfunction. Denies any leakage. Past Medical History: Significant for hypertension, hyperlipidemia, and breast cancer in 2010. Past Surgical History: Total abdominal hysterectomy, bilateral salpingo-oophorectomy for the bleedin g and ovarian tumors. Denies any history of cancer. She had an open cholecystectomy, appendectomy m any years ago. Social History: She is a former smoker. Family History: Sister with colon cancer and patient with personal history of breast cancer. No talat rine ovarian or other cancers diagnosed. Medications: The patient was on carvedilol, losartan, pravastatin, ranitidine, and magnesium oxide a t home. Current medications she is on in the hospital: She has been diagnosed with an ESBL E coli and she marcelino s been placed on meropenem 500 mg q.12. She is also on Lovenox, Lasix besides the above drugs. Allergies: PENICILLIN WITH A RASH. Physical Examination: General: She was awake, alert, and oriented x3, very pleasant and communicated, overweight female wi th no acute distress. Vital Signs: She is afebrile. Her T-max 97.8. All her vital signs stable, blood pressures 119/36, 120/33, pulse in the 70s, and oxygen saturation 97% on room air and nasal cannula. Abdomen: Soft, nondistended. Head and Neck: Normal. No lymphadenopathy. No jugular venous distention. Chest: Normal. Pulses regular. Abdomen: Soft, nondistended, nontender. No rebound. No palpable hepatosplenomegaly. Extremities: Mildly edematous. Calves nontender. Pelvic: Examination was performed at the bedside with the help of bedside flashlight and a medium sp eculum. After examining the vulvar area, no vulvar lesions were seen. Her skin was extremely atroph ic. There was mild purulent discharge on the diaper that she had on since she was in the ICU. She a lso has a Mccann catheter in place on placing the speculum. The patient tolerated the exam very well. There was thick purulent discharge from the apex of the vagina, especially on the left side of the vaginal cuff, I could see some air and discharge leaking out at this point. There was some blood whi le I tried to examine this with turning the speculum 180 degrees. No other abnormality was seen in t he entire anterior and posterior sims of the vagina excepting that the vaginal lining was atrophic. On palpation, no other tumors were palpable plantarly. A distal rectocele was seen on rectovaginal exam and on the apex of the vagina before that was done, there was slight scarring and nodularity on the vaginal cuff more in the left half of the cuff than on the right. Restricted mobility mass palpa ble or fullness in the left adnexal area. Laboratory Data: Her CT scan was reviewed including the images that is loop of most likely sigmoid, what appears to be sigmoid colon with diverticulosis and there is some fat stranding and inflammatory changes in the fat in this area and this is very close to the vagina and with a small amount of air that is seen at the vaginal apex at this time, suspicious for an infection like diverticulitis commun icating with the vaginal apex and no other abnormalities were seen. On examination of the labs, her white cell count has been as high as 25,000 on March 30 down to 24,000 until yesterday and 17,000 today. She has been diagnosed with ESBL E coli and has been treated since March 29. 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 2 etiologies that are likely c ould be diverticulitis with the connection to the vaginal cuff so that the infection spontaneously is draining out. The differential diagnosis could be that there is a mass, likely a colonic mass with family history of colon cancer. This is possible. She does not have a colonoscopy in close 10 years . However, no mass was seen or discerned clearly on the CT scan. These with a 2 top differential di agnosis of this patient with a high colovaginal fistula, so plan is to treat the diverticulitis. She is on meropenem 0.5 g q.12 which is a renally adjusted dose. Recommend optimal treatment if the sabas al functions reverse back to normal. I would recommend treatment with 1 g q.8 or renally dose adjust for treatment of acute diverticulitis. White cell count can be continued to monitor that this is co reed back down and I would continue treatment for at least 14 days before re-evaluating her situation and see if the fistula spontaneously heals. Once the infection is completely treated, she will need further evaluation by a colorectal surgeon in order for this to be resolved if this continues to bec ome a chronic fistula. This appears to be an acute fistula formation. 2.Her urine culture with extended spectrum beta-lactamase Escherichia coli. There is possibility th at she has urosepsis from this. The culture from the 03/30 specimen of the urine shows this. So, co ntinue the meropenem for both and PICC line probably for long-term use of IV antibiotics. The patien t needs to continue all other care according to the medical physicians. This will be communicated wi th Dr. Yung and I will follow the patient as needed. As of now, I will sign off as she can hoda nue to have the antibiotics and she can probably be seen on an outpatient basis. She is welcome to c all my office and establish as patient. 3.They could be distal rectocele the patient has and the nurses have noted that there was a vaginal bulge when she was brought into the ICU originally, but today it was a very difficult exam to be done while the patient is lying down in her bed in the ICU. So, this evaluation can be redone when she c omes out. There was a distal rectocele. Then, we can anger control counselor on a bowel regimen and we can take it from there. 4.The AFB culture is negative thus far and will be followed up with suspicion of tuberculosis, howev er, this is extremely uncommon. There was not an active consideration for this patient at this point . The patient is on isolation and she can follow up in 2 weeks after the antibiotics are done. RO Voice ID: [id number] Report ID: [id number]
[2019-04-02 05:12] LABS: Absolute Lymphocytes (CBC) 0.8 K/uL (0.7-4.9); Basophils % 0.3 % (0-1.3); Hematocrit 28.6 % (36.0-45.0); Lymphocytes % 7.3 % (15.3-44.8); MPV 6.2 fL (7.6-11.3); RBC Red Blood Cell Count 3.56 M/uL (3.86-4.86)
[2019-04-02 05:20] LABS: Magnesium 1.7 mg/dL (1.8-2.4); Phosphorus 2.4 mg/dL (2.5-4.9); Potassium 3.1 mmol/L (3.5-5.1)
[2019-04-02 05:42] VITALS: BMI 35.6
[2019-04-02] MEDS: PANTOPRAZOLE 40MG TABLET PO SCH (05:42)
[2019-04-02] MEDS ORDERED: MAGNESIUM SULFATE 1 gm IVPB 1 GM/100 ML BAG IV ONE (07:30)
[2019-04-02] MEDS: ENOXAPARIN 30 MG/0.3 ML SQ SCH (08:15)
[2019-04-02] MEDS: THIAMINE HCL 100 MG TABLET PO SCH (08:15)
[2019-04-02] MEDS: predniSONE 20 MG TAB PO SCH ×2 (08:15→20:21)
[2019-04-02] MEDS: MAGNESIUM OXIDE 400 MG TAB PO SCH (08:16)
[2019-04-02] MEDS: SODIUM CHLORIDE 0.9% 10ML INJ IV PRN (08:17)
[2019-04-02] MEDS: Meropenem 1,000 MG in NA CHLORIDE 0.9% 100 ML IV SCH ×2 (08:30→17:43)
[2019-04-02] MEDS: MIDODRINE HCL 5 MG TABLET PO SCH ×2 (08:40→20:24)
[2019-04-02] MEDS: CALCIUM CARBONATE CHEW 500MG TAB PO SCH ×3 (08:41→20:21)
[2019-04-02] MEDS ORDERED: Meropenem 1,000 MG in NA CHLORIDE 0.9% 100 ML IV SCH (09:00)
[2019-04-02] MEDS: JUVEN PACKET PO SCH ×2 (09:53→20:21)
[2019-04-02] MEDS: CALCITROL 0.25 MCG CAP PO SCH (21:42)
[2019-04-03] MEDS: Meropenem 1,000 MG in NA CHLORIDE 0.9% 100 ML IV SCH ×3 (00:03→16:00)
--- NOTE | 2019-04-03 01:03 | PN ---
Date of Progress Note: 04/02/2019 Chief Complaint: Abnormal renal function test. Urine output is improving. Creatinine is improving. The patient received IV Lasix for volemia control and to treat fluid overload. The patient was found to have hypomagnesemia and received replacement. The patient was admitted to ICU for septic shock. She was found to have acute kidney injury secondary to prerenal azotemia in view of renal hypoperfusion with nonoliguric ATN. She was diagnosed with urinary tract infection with ESBL and possible enterovaginal fistula pending evaluation from GI switch technician. The patient received Lasix to treat fluid overload. Creatinine level is 1.61, BUN 44. The patient was found to have hypokalemia and hypomagnesemia, and she remains hemodynamically stable. White count is severely elevated and the patient is treated with broad-spectrum antibiotics. Review of Systems: Denies fever, chills today. Denies nausea and vomiting. Physical Examination: Lungs: Clear to auscultation bilaterally. Heart: S1, S2. Abdomen: Soft, benign. Extremities: Edema present in upper and lower extremities. Laboratory Data: White count 10.6, hemoglobin 9.7, WBC is 238,000. Chemistries showed sodium 138, potassium 3.1, chloride 102, CO2 of 29, BUN 36, creatinine 0.99, magnesium 1.7, phosphorus 2.4, calcium 7.6. Impression And Plan: 1. Acute kidney injury, resolving. The patient has hypokalemia. The patient will receive replacement for hypokalemia and hypomagnesemia will be treated with magnesium sulfate infusion. 2. Sepsis. Continue antibiotics. 3. Urinary tract infection. Continue treatment with antibiotics. 4. Acute kidney injury secondary to ischemic acute tubular necrosis in view of sepsis. Renal ultrasound will be done to check for any evidence of chronic kidney disease. CT scan of the abdomen and pelvis with renal stone protocol did not show hydronephrosis. The patient has bilateral pleural effusion and Lasix was started to treat volume overload, septic shock improving off pressors , switch technician evaluation pending for enterovaginal fistula. The patient is on multiple antibiotics including coverage of pneumonia. The patient is on vancomycin. Monitor vancomycin trough. I spent total 36 min including 26 min to coordinate care plan. JEZ/ANGIL Voice ID: [id number] Report ID: [id number] MTDD
[2019-04-03 04:43] LABS: Absolute Lymphocytes (CBC) 0.8 K/uL (0.7-4.9); Basophils % 0.2 % (0-1.3); Hematocrit 26.8 % (36.0-45.0); Lymphocytes % 9.1 % (15.3-44.8); MPV 6.3 fL (7.6-11.3); RBC Red Blood Cell Count 3.36 M/uL (3.86-4.86)
[2019-04-03 04:50] LABS: BUN Blood Urea Nitrogen 22 mg/dL (7-18); Bicarbonate 28 mmol/L (21-32); Glucose Level 79 mg/dL (74-106); Magnesium 1.5 mg/dL (1.8-2.4); Phosphorus 1.5 mg/dL (2.5-4.9); Potassium 3.1 mmol/L (3.5-5.1); Sodium Level 138 mmol/L (136-145)
[2019-04-03] MEDS: PANTOPRAZOLE 40MG TABLET PO SCH (05:02)
[2019-04-03] MEDS ORDERED: POTASS/SODIUM PHOSPHATE 1 PKT POWD.PACK PO SCH (06:00)
[2019-04-03] MEDS: POTASS/SODIUM PHOSPHATE 1 PKT POWD.PACK PO SCH ×3 (07:00→09:06)
[2019-04-03] MEDS ORDERED: POTASSIUM 25 MEQ EFFERV TAB PO ONE (08:00)
[2019-04-03] MEDS ORDERED: Magnesium Sulfate 2gm IVPB 2 G/50 ML BAG IV ONE (08:00)
[2019-04-03] MEDS: CALCIUM CARBONATE CHEW 500MG TAB PO SCH ×3 (08:13→21:01)
[2019-04-03] MEDS: THIAMINE HCL 100 MG TABLET PO SCH (08:15)
[2019-04-03] MEDS: predniSONE 20 MG TAB PO SCH ×2 (08:15→21:01)
[2019-04-03] MEDS: MAGNESIUM OXIDE 400 MG TAB PO SCH (08:16)
[2019-04-03] MEDS: ENOXAPARIN 40 MG/0.4 ML SQ SCH (08:16)
[2019-04-03] MEDS: JUVEN PACKET PO SCH ×2 (08:16→21:00)
[2019-04-03] MEDS: MIDODRINE HCL 5 MG TABLET PO SCH ×2 (08:16→21:01)
[2019-04-03] MEDS: SODIUM CHLORIDE 0.9% 10ML INJ IV PRN (08:17)
[2019-04-03 14:33] LABS: Magnesium 1.7 mg/dL (1.8-2.4); Potassium 3.9 mmol/L (3.5-5.1)
[2019-04-03 16:14] LABS: HIV AG/AB 4TH GEN Non-reactive (Non-reactive)
[2019-04-03] MEDS ORDERED: MAGNESIUM SULFATE 1 gm IVPB 1 GM/100 ML BAG IV ONE (18:00)
[2019-04-03] MEDS ORDERED: POTASSIUM CL SA 10 MEQ TAB PO ONE (18:00)
--- NOTE | 2019-04-03 23:52 | PN ---
Subjective: Sylvia Wagner clinically is doing great. She is feeling good. Denies any chest pain, n ausea, or vomiting. Physical Examination: Chest: Clear. Heart: Regular. Abdomen: No guarding, no rebound, no rigidity. Vital Signs: Stable. Laboratory Data: White count 8700, hemoglobin 9.2, hematocrit 26. Sodium 138, potassium 3.9, magnesium 1.7. Albumin 2.0. Assessment/plan: 1.Respiratory infection has clear. She does not seem to have tuberculosis at this point. This is t he first admission diagnosis. 2.Secondly, she had extended-spectrum beta-lactamase urinary tract infection from a colovaginal fist kelly, taken care by Dr. Saha. Plan will be possibly to get surgery done after she is stable and h as improved clinical condition for the partial colectomy and treating of the fistula. Until then, yumiko hand will be in a detention with antibiotics. 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 Prognosis overall guarded. 4.Renal failure, has improved back to normal. RVD/MODL Voice ID: [id number] Report ID: [id number]
[2019-04-04] MEDS ORDERED: Meropenem 1 GM/100 ML BAG ONE (00:59)
[2019-04-04] MEDS: Meropenem 1,000 MG in NA CHLORIDE 0.9% 100 ML IV SCH ×3 (01:02→18:05)
--- NOTE | 2019-04-04 03:35 | PN ---
Date of Progress Note: 04/03/2019 Chief Complaint: Abnormal renal function test, acute on chronic kidney injury due to nonoliguric acu te tubular necrosis. Urine output has improved. Renal function is stabilizing. Patient has history of urinary tract infection with ESBL, possible enterovaginal fistula. Patient is to evaluate by Environmental Marketer , seen. Review of Systems: Denies fever or chills. Physical Examination: Lungs: Few crackles at bases. Heart: S1 and S2. Abdomen: Soft, benign. Extremities: Slight edema. Laboratory Data: Chemistry show sodium 138, potassium 3.1, chloride 102, creatinine 0.99, BUN 36. Impression And Plan: 1.Acute kidney injury, renal function is improving. Monitor renal function and fluid and hypokalemi a replacement order accordingly. Monitor magnesium level and advance magnesium replacement. 2.Sepsis. Continue antibiotics. 3.Urinary tract infection. Patient is on treatment. 4.Acute kidney injury, secondary to ischemic acute tubular necrosis. In view of sepsis, ultrasound was done to check for any evidence of obstructive uropathy. CT scan of the abdomen and pelvis per st one protocol did not show hydronephrosis. Monitor renal function and continue to monitor vancomycin trough level, adjust treatment accordingly. EB/MODL Voice ID: [id number] Report ID: [id number]
[2019-04-04] MEDS: PANTOPRAZOLE 40MG TABLET PO SCH (06:09)
[2019-04-04 06:46] LABS: Albumin 2.1 g/dL (3.4-5.0); BUN Blood Urea Nitrogen 12 mg/dL (7-18); Bicarbonate 31 mmol/L (21-32); Glucose Level 82 mg/dL (74-106); Magnesium 1.7 mg/dL (1.8-2.4); Phosphorus 1.3 mg/dL (2.5-4.9); Sodium Level 135 mmol/L (136-145)
[2019-04-04 06:54] LABS: Absolute Lymphocytes (CBC) 1.1 K/uL (0.7-4.9); Basophils % 0.1 % (0-1.3); Hematocrit 27.7 % (36.0-45.0); MPV 6.6 fL (7.6-11.3); RBC Red Blood Cell Count 3.46 M/uL (3.86-4.86)
--- NOTE | 2019-04-04 08:19 | P.PN ---
Subjective Date of Service: 04/04/19 Chief Complaint: ESBL urinary tract infection Patient is doing much better no complaints hepatitis also improved Review of Systems Unremarkable Physical Examination - Vital Signs Temperature: 97.6 F Blood Pressure: 128/72 Pulse: 71 Respirations: 17 Pulse Ox (%): 98 - Physical Exam General: Alert, Oriented x3 Neck: Supple Respiratory: Clear to auscultation bilaterally Cardiovascular: No edema, Regular rate/rhythm - Studies Laboratory Data (last 24 hrs) 04/04/19 06:00: WBC 7.5, Hgb 9.3 L, Hct 27.7 L, Plt Count 209 04/04/19 06:00: Sodium 135 L, Potassium 4.0, BUN 12, Creatinine 0.50 L, Glucose 82, Phosphorus 1.3 L, Magnesium 1.7 L 04/03/19 14:00: Potassium 3.9, Magnesium 1.7 L Microbiology Data (last 24 hrs): 03/30/19 02:09 Blood - Blood Aerobic Blood Culture - Final No growth in 5 days. 03/30/19 02:09 Blood - Blood Anaerobic Blood Culture - Final 03/30/19 02:27 Blood - Blood Aerobic Blood Culture - Final No growth in 5 days. 03/30/19 02:27 Blood - Blood Anaerobic Blood Culture - Final Assessment & Plan - Problems (Diagnosis) (1) Gastroesophageal reflux Current Visit: Yes Status: Acute Plan: Much improved Qualifiers: Esophagitis presence: esophagitis presence not specified Qualified Code(s) : K21.9 - Gastro-esophageal reflux disease without esophagitis (2) Enterovaginal fistula Current Visit: Yes Status: Acute Plan: Continue with antibiotic therapy (3) Shock Current Visit: Yes Status: Acute Plan: Patient shock has resolved possible reaction to medication may have underlying adrenal insufficiency decrease prednisone to 10 mg twice a day possible discharge patient's vital signs oxygenation stable is still little hypomagnesemia will recheck again
[2019-04-04] MEDS ORDERED: predniSONE 20 MG TAB PO SCH (09:00)
[2019-04-04] MEDS ORDERED: MAGNESIUM SULFATE 1 gm IVPB 1 GM/100 ML BAG IV ONE (09:00)
[2019-04-04] MEDS: MAGNESIUM OXIDE 400 MG TAB PO SCH (09:00)
[2019-04-04] MEDS: JUVEN PACKET PO SCH ×2 (10:18→21:50)
[2019-04-04] MEDS: ENOXAPARIN 40 MG/0.4 ML SQ SCH (10:20)
[2019-04-04] MEDS: THIAMINE HCL 100 MG TABLET PO SCH (10:21)
[2019-04-04] MEDS: CALCIUM CARBONATE CHEW 500MG TAB PO SCH ×3 (10:22→21:50)
--- NOTE | 2019-04-04 10:24 | PN ---
Subjective: Ms. Wagner was sent to Dr. Yung from my office for pulmonary infiltrate. Dr. Yung performed a bronchoscopy, but during bronchoscopy she bled profusely inside lungs, had to be intubated. CPR was done at that time. She was brought to the floor, treated for Staph infection. The lungs improved clinically. Tuberculosis could not be ruled out at that time. The lungs are cleared up and tuberculosis possibly is not an issue anymore. Wound cultures are pending. After improvement, the patient got to the floor, got sick again. The floor callsed me the last week and I advised CT scan of chest, abdomen, pelvis, in fact not knowing where the leukocytosis and hypotension was coming from, it turned out she also has enterovaginal fistula on CAT scan for which she was started on meropenem 1 g q.8 hours and vancomycin at the same time not knowing the second source of infection. Dr. Yung called me to take care of her now as I am her PCP. She is in ICU and stable. Blood pressure has improved. She is off Dexter-Synephrine. She is able to talk, communicate properly. She has low albumin from being acutely ill. Physical Examination: Vital Signs: Blood pressure 133/98, on no pressure medications. Temperature 97.7, pulse is 73. HEENT: No JVD. No carotid bruits. Chest: Clear. Heart: Regular. She is moderately obese. Extremities: She has diffuse edema from hypoalbuminemia. Laboratory Data: White count is down to 10,000 from 24,000. Creatinine down to 0.99, which is mainly prerenal azotemia and dehydration. Hemoglobin stable. Sodium 138, potassium 3.1, chloride 102, BUN 36, creatinine 0.99, magnesium 1.7 low, albumin is 2.0. Assessment And Plan: 1. Respiratory infection has cleared on chest x-ray, status post multiple antibiotics over the last 2 weeks. 2. 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 Continue meropenem for controlling the ESBL, which is coming from her culture and urine. She will be needing antibiotics for about 2 weeks and possibly a surgery with Colon and specialist together, I presume Dr. Saha can work with the colon expert. Tuberculosis has been ruled out. Chest x-ray is clear now. 3. Diffuse edema. Anasarca is from hypoalbuminemia. This should improve with her improved protein intake. 4. Acute renal failure has resolved now with IV fluids and conservative therapy. 5. Hypokalemia and hypomagnesemia. She has been given replacement for both as needed. Prognosis is overall fair. ERICK/MODKadie Voice ID: [id number] Report ID: [id number] ZURID
[2019-04-04] MEDS: predniSONE 10 MG TAB PO SCH (10:28)
[2019-04-04] MEDS: POTASS/SODIUM PHOSPHATE 1 PKT POWD.PACK PO SCH ×3 (10:29→13:36)
[2019-04-04] MEDS ORDERED: ALBUTEROL 2.5 MG/3 ML NEB SOL IH PRN (14:06)
[2019-04-04] MEDS: CALCITROL 0.25 MCG CAP PO SCH (21:50)
[2019-04-05] MEDS: Meropenem 1,000 MG in NA CHLORIDE 0.9% 100 ML IV SCH ×3 (00:43→17:24)
--- NOTE | 2019-04-05 01:39 | PN ---
Date of Progress Note: 04/04/2019 Chief Complaint: Abnormal kidney function test, acute on chronic kidney injury due to nonoliguric ac talat tubular necrosis. Urine output has improved. Renal function has stabilized and patient is recei ving treatment for urinary tract infection with ESBL. Patient has history of possible enterovaginal fistula. She was evaluated by LINING IRONER. Review of Systems: Denies fever or chills. Physical Examination: Lungs: Clear to auscultation bilaterally. Heart: S1, S2. Abdomen: Soft, benign. Extremities: Minimal edema. Laboratory Data: Hemoglobin 9.3, WBC 7.5, platelet count is 209,000. Chemistries show sodium 135, p otassium 4.0, chloride 99, CO2 of 31, BUN 12, and creatinine 0.55. Impression And Plan: 1.Acute kidney injury. Renal function has improved significantly. Creatinine level was 2.63 and gr adually improved to baseline. Acute kidney injury, resolving. 2.Avoid nephrotoxic medication. 3.Hypertension. Continue blood pressure medications and low-sodium diet. 4.Urinary tract infection, on treatment. Continue current antibiotics. 5.Sepsis. Patient was evaluated with blood cultures, adjust antibiotics according to blood culture. Continue to monitor vancomycin trough level and adjust treat ment accordingly. JEZ/MODL Voice ID: [id number] Report ID: [id number]
--- NOTE | 2019-04-05 02:21 | PN ---
Subjective: Ms. Wagner is also doing lot better. She denies any chest pain, nausea, vomiting, diar silvia, coughing. Physical Examination: Vital Signs: Blood pressure 158/76, pulse is 88. HEENT: No JVD. No carotid bruits. Heart: Regular. Abdomen: No guarding, no rebound, no rigidity. Extremities: Edema is profuse, but improving. Investigations: Her white count is 7500, hemoglobin 9.3. Assessment And Plannin.Septic shock was possibly from diverticulitis-induced enterovaginal fistula. Dr. Saha thinks she may not need surgery at this point. Will finish her antibiotics for 14 days and follow up with Juan Miguel Saha. 2.Tuberculosis, that is most likely ruled out. Cultures still pending, but her clinical picture has improved. Her pulmonary findings have improved significantly just with the antibiotics. She has a small cavitary lesion, which will be followed by Dr. Yung. She is not coughing at all and so con tagiousness of tuberculosis is not there if there is any tuberculosis. 3.Pulmonary infection she had on admission has resolved particularly. 4.Fatigue the main reason why she came to my office in the first place since have resolved and she i s doing therapy. RVD/MODL Voice ID: [id number] Report ID: [id number]
[2019-04-05] MEDS ORDERED: TRAMADOL HCL 50 MG TAB PO PRN (02:47)
[2019-04-05] MEDS: ONDANSETRON 4 MG/2 ML VIAL IV PRN (02:58)
[2019-04-05 05:15] LABS: Urine Appearance CLOUDY; Urine Bilirubin NEGATIVE (NEG); Urine Blood 3+ (NEG); Urine Color YELLOW; Urine Glucose NEGATIVE (NEG); Urine Protein 1+ (NEG); Urine Urobilinogen 0.2 mg/dL (0.2-1.0)
[2019-04-05 05:32] LABS: Urine Microscopic Reflex ORDER UMIC
[2019-04-05 06:09] LABS: Urine Bacteria <20 /HPF (<20); Urine RBC TNTC /HPF (NONE SEEN)
[2019-04-05 06:10] LABS: Urine Culture Reflex Order NOT NEEDED
[2019-04-05] MEDS: PANTOPRAZOLE 40MG TABLET PO SCH (06:16)
[2019-04-05 06:59] LABS: Basophils % 0.1 % (0-1.3); Hematocrit 31.8 % (36.0-45.0); Lymphocytes % 6.8 % (15.3-44.8); MPV 6.6 fL (7.6-11.3); RBC Red Blood Cell Count 3.94 M/uL (3.86-4.86)
[2019-04-05 07:08] LABS: Magnesium 1.5 mg/dL (1.8-2.4); Phosphorus 1.9 mg/dL (2.5-4.9); Potassium 3.7 mmol/L (3.5-5.1)
--- NOTE | 2019-04-05 07:18 | PN ---
Subjective: With ESBL in the urine. Denies any headache, nausea, vomiting, chest pain, abdominal pa in, constipation, or diarrhea. Objective: Vital Signs: Temperature 97, pulse 87, respirations 16, blood pressure 137/65. Lungs: Basal crackles. Heart: S1 and S2 regular. Abdomen: Soft, nontender. Bowel sounds present. Extremities: No edema. Laboratory Data: WBC 7.5 down from 24,000, hemoglobin 9.3, platelets are 209. Chemistry shows sodiu m 135, potassium 4, chloride 99, bicarb 31, BUN 12, creatinine 0.5, glucose 92. Micro data; E coli E SBL being treated with meropenem. Sputum cultures are growing Pseudomonas. Continue antibiotic, total course of 7 days IV with meropenem and then can be re-evaluated with chest x-ray. Continue supportive care and repeat urinalysis. I will appreciate treatment. KULWANT/MODL Voice ID: [id number] Report ID: [id number]
[2019-04-05 08:49] LABS: Blood Morphology Comment NOT SEEN (NOT SEEN); Platelet Estimate ADEQ
[2019-04-05] MEDS: MAGNESIUM OXIDE 400 MG TAB PO SCH (09:00)
[2019-04-05] MEDS ORDERED: POTASSIUM 25 MEQ EFFERV TAB PO ONE (09:32)
[2019-04-05] MEDS ORDERED: POTASSIUM PHOS 20 MM in NA CHLORIDE 0.9% 500 ML IV ONE (09:32)
[2019-04-05] MEDS ORDERED: Magnesium Sulfate 2gm IVPB 2 G/50 ML BAG IV ONE (09:32)
[2019-04-05] MEDS: CALCIUM CARBONATE CHEW 500MG TAB PO SCH ×3 (09:56→21:19)
[2019-04-05] MEDS: predniSONE 10 MG TAB PO SCH (09:56)
[2019-04-05] MEDS: ENOXAPARIN 40 MG/0.4 ML SQ SCH (09:57)
[2019-04-05] MEDS: THIAMINE HCL 100 MG TABLET PO SCH (09:57)
[2019-04-05] MEDS: JUVEN PACKET PO SCH ×2 (09:58→21:00)
[2019-04-05] MEDS ORDERED: FLUCONAZOLE 100 MG TAB PO ONE (14:57)
--- NOTE | 2019-04-05 18:27 | PN ---
Subjective: Patient is feeling good this morning. Last night, she had severe pain in the urethra fo r which nurses called me and we advised tramadol. I advised her to place a Mccann catheter back in if she had retention of urine. I talked to the charge nurse today. I do not get any answer on how muc h retention she has. She is going to call the [id number] last night to figure out the answer to retention of urine. Physical Examination: Vital Signs: Blood pressure 113/59, pulse is 88. Chest: Clear. Heart: Regular. Abdomen: No guarding, no rebound, rigidity. Laboratory Data: WBC count has increased to 14,500. This could be because of stressful event last n ight. Otherwise, I do not see any more evidence of sepsis at this point. Investigations: Urinalysis, which shows also [id number]-count rbc's and wbc's, also 1+ esterase . Assessment And Plan: 1.This is a very complicated patient who had pulmonary infection in the beginning, which is bacteria l. Tuberculosis has been ruled out so far. There is no coughing or sputum. She has a small cavity in the lung, which could be bacterial in nature. 2.Anemia, which is chronic, most likely anemia of chronic disease. 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 She thinks she may not need surgery at this point . Continue antibiotics for 2 weeks meropenem. 4.Extended-spectrum beta-lactamase urinary tract infection. On meropenem IV. Dr. Omer consulted b ecbassam there seems to be stricture of urethra, which he needs to have cystoscopy done and I believe at the cystoscopy, we need to also make sure there is no fistula in the bladder region also. Prognosis overall guarded. RVD/MODL Voice ID: [id number] Report ID: [id number]
--- NOTE | 2019-04-05 19:03 | CON ---
Subjective: A 74-year-old pleasant who was having some cough and a CT scan showed some spots on her lung, so she underwent bronchoscopy on 03/16/2019 that was complicated by pulmonary bleeding and the fact that she had to be admitted and intubated in ICU. After she got out of the ICU, she went to the floor. She was still having some signs of septic shock. She was taken back to the ICU again, place d on ventilator, and pressors were given. She did well. She had a CT scan showing that she had a si gmoidovaginal fistula. She had previous surgeries in that area and she had hysterectomy and she did have a colonoscopy 10 years ago, but no mention of diverticulosis. However, I was called mainly for urinary retention. Since she was voiding well at home, she has no UTIs normal, no straining, no diff iculty going, no gross hematuria, no history of kidney stones or anything like that. She normally marcelino s nocturia 2 to 3 times per night. However, since she has been in the hospital, a Mccann catheter was placed and then when it was removed yesterday, she went into urinary retention. Mccann catheter was replaced and some junky material came out of the bladder. She has been drinking lots of water now an d the urine is clear. My plans for her, see plan below. Past Medical History: Hypertension, hyperlipidemia, breast cancer 2010, acute on chronic kidney dise . Past Surgical History: Total abdominal hysterectomy and bilateral salpingo-oophorectomy, cholecystec stacy, and appendectomy. Social History: Former smoker. Family History: Sister had colon cancer. Patient with a personal history of breast cancer. Medications: Carvedilol, losartan, pravastatin, ranitidine, magnesium oxide. Patient is on multiple medications in the hospital for ESBL including meropenem and also was on Lovenox for anticoagulation . Allergies: PENICILLIN, CAUSES A RASH. Review of Systems: Otherwise negative. Physical Examination: General: She is awake, alert, pleasant lady. Vital Signs: 98.1, 88, 18, 113/59, saturations 100% home. HEENT: Atraumatic, normocephalic. Lungs: Clear. Abdomen: Soft, nontender. Heart: S1, S2. : Mccann catheter draining clear urine. Pelvic: No pelvic exam done. Please see Dr. Saha's note for pelvic examination. Dr. Saha s aw thick purulent discharge from the apex of the vagina, especially on the left side of the vaginal c uff. She could see air and discharge leaking out at that point. Laboratory Data: Reviewed. White count 14.5, H and H are 10.8 and 31.8, platelet count is 235. Meliza phyllis showed a sodium low at 132, potassium 3.7, chloride 96, carbon dioxide 29, BUN 18, creatinine 0.6, GFR estimated to be 86%, glucose 92. UA does show urine to be cloudy, pH 8.0, 3+ blood, nitrite negative, 1+ leukocyte esterase, rbc's too numerous to count, white cells 20 to 50. She also had a cytology result from the urine shows no signs of malignant cells, but did have Merary in the urine. Assessment: A pleasant 74-year-old lady with lots of medical problems, went to ICU twice. She was s ick. 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 Saha. She is now in urinary retention with extended spectrum beta-lactamase in the u rine. I agree with the treatment for the extended spectrum beta-lactamase. I would also add Difluca n for the yeast, maybe 1 or 2 days. I am going to add Flomax for urinary retention and going to kira mmend a voiding trial in 1 week. If she is not able to void in 1 week, the catheter will need to be replaced at [facility] where she is going and she may possibly need a cysto after th at. DIANDRA/ANGIL Voice ID: [id number] Report ID: [id number]
[2019-04-05 20:24] LABS: Hepatitis C Virus RNA (PCR)log <1.18 log IU/mL
[2019-04-05] MEDS ORDERED: TAMSULOSIN 0.4 MG SR CAP PO SCH (21:00)
[2019-04-06] MEDS: Meropenem 1,000 MG in NA CHLORIDE 0.9% 100 ML IV SCH ×3 (01:35→17:06)
--- NOTE | 2019-04-06 02:13 | PN ---
Date of Progress Note: 04/05/2019 Subjective: Patient was admitted with septic shock, UTIs, adrenal insufficiency treated, recovered f rom the shock, developed acute kidney injury, oliguric with anasarca, response to resuscitation, curr ently nonoliguric. Kidney function recovered completely. Blood pressure has been stable. Physical Examination: Vital Signs: Blood pressure 125/54, pulse 100, afebrile. Patient had urine output of 1600. Chest: Decreased entry bilateral base. Heart: S1, S2. Systolic murmur. Abdomen: Soft, nontender. Extremities: Trace edema. Laboratory Data: WBC 14.5, H and H 10.8/31.8, platelets of 325. Sodium 132, potassium 3.7, bicarb 2 9, BUN 18, creatinine 0.6, calcium 8, magnesium 1.5, phosphorus 1.9. Current Medications: The patient on, its include fluconazole, meropenem, Lovenox, Zofran, pantoprazo le, prednisone, and calcitriol. Assessment And Plan: 1.Acute kidney injury secondary to poor perfusion, acute tubular necrosis/toxic acute tubular necros is secondary to the sepsis; nonoliguric, currently normal volume. I am going to continue to monitor the patient closely. 2.Hypokalemia, hypophosphatemia, hypomagnesemia. We will continue supplement. 3.Hypertension, currently hypotension. Keep holding all blood pressure medication. 4.Relative adrenal insufficiency. Continue current prednisone dose. 5.Urinary tract infection secondary to Escherichia coli extended- spectrum beta-lactamases. Follow up with ID. Continue current antibiotic. MIRIAN/RUSS Voice ID: [id number] Report ID: [id number]
[2019-04-06] MEDS: PANTOPRAZOLE 40MG TABLET PO SCH (06:45)
[2019-04-06 08:07] VITALS: O2SAT 95
[2019-04-06 08:21] LABS: BUN Blood Urea Nitrogen 15 mg/dL (7-18); Bicarbonate 30 mmol/L (21-32); Glucose Level 76 mg/dL (74-106); Potassium 4.1 mmol/L (3.5-5.1); Sodium Level 134 mmol/L (136-145)
[2019-04-06] MEDS: ENOXAPARIN 40 MG/0.4 ML SQ SCH (08:31)
[2019-04-06] MEDS: predniSONE 10 MG TAB PO SCH (08:32)
[2019-04-06] MEDS: THIAMINE HCL 100 MG TABLET PO SCH (08:32)
[2019-04-06] MEDS: CALCIUM CARBONATE CHEW 500MG TAB PO SCH ×2 (08:32→14:17)
[2019-04-06] MEDS: JUVEN PACKET PO SCH (08:32)
[2019-04-06] MEDS: SODIUM CHLORIDE 0.9% 10ML INJ IV PRN (08:33)
[2019-04-06] MEDS: MAGNESIUM OXIDE 400 MG TAB PO SCH (08:35)
[2019-04-06 09:22] LABS: Absolute Lymphocytes (CBC) 0.9 K/uL (0.7-4.9); Basophils % 0.8 % (0-1.3); Hematocrit 25.3 % (36.0-45.0); Lymphocytes % 14.6 % (15.3-44.8); MPV 6.7 fL (7.6-11.3); RBC Red Blood Cell Count 3.17 M/uL (3.86-4.86)
[2019-04-06 13:19] LABS: HBsAG Nonreactive (Nonreactive)
--- NOTE | 2019-04-06 14:25 | PN ---
Subjective: Patient is lying in bed. No new acute event. Chart reviewed. Objective: Vital signs: Temperature 98, pulse 114, respirations 19, blood pressure 131/55. Lungs: Basilar crackles, left more than right. Heart: S1, S2. Regular. Abdomen: Soft, nontender. Bowel sounds present. Extremities: Trace edema. Laboratory Data: Lab data from today; WBC 6.1, hemoglobin 8.7, platelets are 174. Chemistry shows s odium 134, potassium 4.1, chloride 98, bicarb 30, BUN 15, creatinine 0.5, glucose 76. Sputum culture s grew Pseudomonas aeruginosa and urine growing E coli ESBL. We will add doxycycline. Vaginal area with whitish cream like secretions. We will add nystatin crea m to the site. We will follow patient closely. Awaiting Gilda transfer. NF/MODL Voice ID: [id number] Report ID: [id number]
[2019-04-06 16:30] VITALS: BP 135/55; TEMP 97.5
--- NOTE | 2019-04-06 19:58 | PN ---
Her urine culture grew ESBL. She is on antibiotics for this, long-term antibiotics. We would like t o continue using the Flomax. She should have a voiding trial on Thursday. She may be in [place] by then. They certainly can do that, then replace the Mccann catheter as needed. DIANDRA/RUSS Voice ID: [id number] Report ID: [id number]
[2019-04-06] MEDS ORDERED: DOXYCYCLINE 100 MG in NA CHLORIDE 0.9% 100 ML IVPB SCH (21:00)
[2019-04-06] MEDS ORDERED: NYSTATIN 100MU/GM CREAM 15GM TOP SCH (21:00)
--- NOTE | 2019-04-06 21:34 | P.DS ---
Admission Date: 03/17/19 Discharge Date: 04/06/19 Disposition: ROUTINE DISCHARGE Discharge Condition: FAIR Reason for Admission: ESBL urinary tract infection Hospital Course: MS. DIOR IS DOING GOOD AFTER GRIFFITH PLACEMENT. SHE HAS VERY COMPLICATED COURSE. SHE WAS ADMITTED BY DR GRAJEDA AFTER EMERGENCY INTUBATION AT [facility] WHERE FRAIL TISSUE BLED SEVERELY. I HAD REFERRED HE RTO DR. GRAJEDA FOR PATCHY INFILTERATE IN LUNGS WITHOUT ANY SYMPTOMS OF LUNGS. HE AND I SUSPECTED TB HER CRP AND SED RATE WERE HIGH ALSO. IT TURNS OUT SHE HAD BACTERIAL INFECTION , NEEDED IV ABX BUT AGAIN IF IT WAS ARDS LIKE PICTURE FROM OTHER SOURCE IS STILL A POSSIBILITY. LATER SHE GOT BETTER, GOT EXTUBATED BUT ONCE AGAIN HAD SUDDEN RISE OF WBC TO 24K, HYPOTENSION AND I ORDERED CT CHEST ABDOMEN AND PELVIS TO DEFINE SOURCE OF INFECTION. IT SHOWED COLO VAGINAL FISTULA AND URINE GREW ESBL FROM URINE. SHE IMPROVED, GOT BACKTO TO FLOOR AFTER A FEW DAYS OR NEOSINEPHRINE, IV ABX AND STEROIDS THERE WAS SUSPCION OF DONTRELL'S. I AM TAPERING OFF STEROIDS I SUSPECT LOW LIKELIHOOD OF DONTRELL'S . SHE TWO DAYS AGO HAD SEVERE PAIN IN [place] AT NIGHT. SHE HAD RETENTION AND GRIFFITH HAD TO BE PLACED. SINCE THEN SHE HAS BEEN STABLE. SHE NEEDS UROGNECOLOGIST AND COLORECTAL SURGEON IF THERE IS ANY NEED OF SURGERY. SHE [facility] NOW SENT TO [facility]URTHER CARE. Vital Signs/Physical Exam: Temp Pulse Resp BP Pulse Ox 97.5 F 109 H 19 135/55 L 95 04/06/19 16:00 04/06/19 16:00 04/06/19 16:00 04/06/19 16:00 04/06/19 16:00 Laboratory Data at Discharge: WBC 6.1 K/uL (4.3-10.9) D 04/06/19 09:13 Hgb 8.7 g/dL (12.0-15.0) L 04/06/19 09:13 Hct 25.3 % (36.0-45.0) L D 04/06/19 09:13 Plt Count 174 K/uL (152-406) D 04/06/19 09:13 Sodium 134 mmol/L (136-145) L 04/06/19 07:38 Potassium 4.1 mmol/L (3.5-5.1) 04/06/19 07:38 BUN 15 mg/dL (7-18) 04/06/19 07:38 Creatinine 0.53 mg/dL (0.55-1.3) L 04/06/19 07:38 Glucose 76 mg/dL (74-106) 04/06/19 07:38 Uric Acid 8.8 mg/dL (2.6-6.0) H 03/31/19 04:33 Phosphorus 1.9 mg/dL (2.5-4.9) L 04/05/19 06:30 Magnesium 1.5 mg/dL (1.8-2.4) L 04/05/19 06:30 Total Bilirubin 3.3 mg/dL (0.2-1.0) H 03/30/19 02:27 AST 106 U/L (15-37) H 03/30/19 02:27 ALT 62 U/L (12-78) 03/30/19 02:27 Alkaline Phosphatase 116 U/L (45-117) 03/30/19 02:27 Troponin I 0.05 ng/mL (0.0-0.045) H 03/30/19 16:50 Home Medications: Calcium Carbonate [Calcium] 1 tab PO DAILY 03/16/19 Cholecalciferol (Vitamin D3) [Vitamin D3] 5,000 unit PO DAILY 03/16/19 Magnesium Oxide [Magnesium] 250 mg PO DAILY 03/16/19 Meclizine HCl 25 mg PO TID PRN 03/16/19 Multivitamin [Multiple Vitamins] 1 each PO DAILY 03/16/19 Ranitidine HCl [Zantac 75] 75 mg PO BID 03/16/19 Vit B Complx C/Folic Acid/Zinc [Renaplex Tablet] 1 tab PO DAILY 03/16/19 predniSONE [Deltasone*] 10 mg PO DAILY #30 tab 04/04/19 New Medications: predniSONE [Deltasone*] 10 mg PO DAILY #30 tab Patient Discharge Instructions: Patient to go home on IV meropenem please check with infectious disease specialist for many days of IV antibiotic therapy she will need. Patient to follow up with Dr. Hernandez. VISIT WITH DR. SAHA IN 10 DAYS FOR PLAN FOR SURGERY OR NOT. FU WITH ME IN OFFICE AFTER RESIDENTIAL. Diet: Regular Activity: Ad sol Followup: Rafael Yung MD [ACTIVE - CAN ADMIT] - Brodie Nelson MD [ACTIVE - CAN ADMIT] - Yajaira Saha MD [PROVISIONAL ASSOCIATE ACTIVE] - 04/14/19 ()
--- NOTE | 2019-04-07 03:20 | PN ---
Date of Progress Note: 04/06/2019 Subjective: The patient was admitted with septic shock, UTI. The patient had adrenal insufficiency, had acute kidney injury, oliguric, turned to nonoliguric, then recovered. Physical Examination: Vital Signs: Blood pressure 135/55, pulse of 100, afebrile. The patient had good urine output of 19 00. Chest: Clear to auscultation. Heart: S1, S2. Regular. Systolic murmur. Abdomen: Soft, nontender. EXTREMITIES: Plus edema. Laboratory Data: H and H 8.7/25.3. Sodium 134, potassium 4.1, bicarb 30, BUN 15, creatinine 0.5, ca lcium 8.9. Current Medications: The patient on include, prednisone 10 mg, meropenem, calcitriol 0.5, pantoprazo le, thiamine. Assessment And Plan: 1.Acute kidney injury secondary to prerenal toxic acute tubular necrosis, recovered, resolved. 2.Hypokalemia, resolved. 3.Adrenal insufficiency. Continue supplement. 4.Urinary tract infection. Continue meropenem. 5.Secondary hyperparathyroid. Continue calcitriol. 6.Urinary retention. Continue Mccann for the time being. MIRIAN/RUSS Voice ID: [id number] Report ID: [id number]
[2019-04-08 04:56] LABS: Albumin, (SPE) 2.3 g/dL (3.8-4.8); Alpha-1-Globulins 0.3 g/dL (0.2-0.3); Alpha-2-Globulins 0.3 g/dL (0.5-0.9); Gamma Globulins 0.5 g/dL (0.8-1.7); INTERPRETATION REPORT
[2019-04-08 13:24] LABS: Vitamin D 1,25-Dihydroxy Total <8 pg/mL (18-72); Vitamin D,1,25-OH2, D2 <8 pg/mL
== END 2019-04-06 17:35 | DRG 199 ==
LOC: OR 06:48 → 3RD-ICU 09:41 → OR 03-17 07:05 → 2ND 03-20 12:45 → 3RD-ICU 03-30 01:23 → 4TH 04-02 10:15
PROVIDERS: ADMIT Internal Medicine Sleep Medicine; ATTEND Internal Medicine Sleep Medicine
PROC: 0W9930Z Drainage of Right Pleural Cavity with Drainage Device, Percutaneous Approach (ICD-10-PCS; 2019-03-16)
PROC: 0BD48ZX Extraction of Right Upper Lobe Bronchus, Via Natural or Artificial Opening Endoscopic, Diagnostic (ICD-10-PCS; principal; 2019-03-16 08:00)
PROC: 02HV33Z Insertion of Infusion Device into Superior Vena Cava, Percutaneous Approach (ICD-10-PCS; 2019-03-30)
DX: J95.811 Postprocedural pneumothorax (principal); J95.821 Acute postprocedural respiratory failure; A41.9 Sepsis, unspecified organism; N17.0 Acute kidney failure with tubular necrosis; J85.0 Gangrene and necrosis of lung; R65.21 Severe sepsis with septic shock; J95.61 Intraoperative hemorrhage and hematoma of a respiratory system organ or structure complicating a respiratory system procedure; E87.0 Hyperosmolality and hypernatremia; E87.2 Acidosis; N82.4 Other female intestinal-genital tract fistulae; N39.0 Urinary tract infection, site not specified; E27.40 Unspecified adrenocortical insufficiency; N25.81 Secondary hyperparathyroidism of renal origin; Y84.8 Other medical procedures as the cause of abnormal reaction of the patient, or of later complication, without mention of misadventure at the time of the procedure; Y92.239 Unspecified place in hospital as the place of occurrence of the external cause; I48.0 Paroxysmal atrial fibrillation; I95.2 Hypotension due to drugs; E83.51 Hypocalcemia; E83.42 Hypomagnesemia; B96.20 Unspecified Escherichia coli [E. coli] as the cause of diseases classified elsewhere; E87.6 Hypokalemia; R33.9 Retention of urine, unspecified; E83.39 Other disorders of phosphorus metabolism; B95.8 Unspecified staphylococcus as the cause of diseases classified elsewhere; E78.5 Hyperlipidemia, unspecified; K21.9 Gastro-esophageal reflux disease without esophagitis; Y83.9 Surgical procedure, unspecified as the cause of abnormal reaction of the patient, or of later complication, without mention of misadventure at the time of the procedure; Z87.891 Personal history of nicotine dependence
CPT/HCPCS: 36415; 36430; 71045; 71250; 74176; 76000; 80048; 80053; 80069; 80076; 80202; 81001; 81003; 81015; 82306; 82533; 82550; 82553; 82570; 82607; 82652; 82728; 82746; 82805; 82962; 83520; 83540; 83735; 83880; 83970; 84100; 84132; 84145; 84156; 84165; 84439; 84443; 84466; 84484; 84550; 85025; 85027; 85044; 85652; 86021; 86038; 86140; 86160; 86225; 86317; 86430; 86704; 86706; 86850; 86900; 86901; 87015; 87040; 87070; 87077; 87086; 87088; 87102; 87116; 87186; 87205; 87206; 87210; 87340; 87389; 87490; 87522; 87590; 88108; 88305; 88312; 93005; 93306; 94002; 94640; 94660; 94760; 97110; 97116; 97161; 97164; 97530; C9113; J0171; J0330; J0692; J1160; J1630; J1644; J1650; J1720; J1940; J2185; J2250; J2370; J2405; J2543; J2550; J2704; J2920; J3010; J3370; J3411; J3475; J7030; J7060; J7512; P9016; P9047